=== PATIENT | female | born 1940 | race Caucasian/White ===

== ENCOUNTER 2018-08-22 12:40 | Emergency (ER) | payer MEDICARE, OTHER ==
[~2018-08-22] VITALS: Ht 157.5 cm; Wt 62.1 kg
[2018-08-22] MEDS ORDERED: LIDOCAINE 1% INJ 20 ML 20 ML VIAL ONE (13:05)
[2018-08-22] MEDS ORDERED: TETANUS,DIPTH,PERTUSS P/F (BOOSTRIX) 0.5 ML VIAL IM ONE ×2 (13:07→13:15)
--- NOTE | 2018-08-22 13:09 | ED Head Injury ---
General Chief Complaint: Head/Cervical Problems Stated Complaint: HEAD INJ Nursing Triage Note: Pt arrived with cc of head injury. Onset 30 minutes prior to arrival. Cow kicked gate, which hit pt in head. Pt has hematoma to left forehead with small laceration of 1.5 cm. Bleeding controled. Pt ambulatory to tx room and alert/oriented x 4. Pt did not lose consiousness. Source: patient Exam Limitations: no limitations History of Present Illness Date Seen by Provider: Aug 22, 2018 Time Seen by Provider: 12:50 Initial Comments The patient presents to the ER by private conveyance with chief complaint that just prior to arrival she was standing by a cattle gate and she thinks a calloused of kicked it because it swung out smacking her in the forehead above the left eye knocking her to the ground. She denies striking her head as she fell. She's not having pain anywhere else. She's not taken anything for the goose bump on her forehead but she's got bleeding from the forehead so she decided, and get it stitched up. She says she had her head split by a cow back in 2010 and that's when she had her last tetanus shot. She denies loss of consciousness, confusion or amnesia. She's not on blood thinners. She is only on a blood pressure medicine which she says she does not take very routinely and has not taken today. Allergies and Home Medications Allergies Coded Allergies: No Known Drug Allergies (Unverified , 12/19/11) Home Medications No Active Prescriptions or Reported Meds Patient Home Medication List Home Medication List Reviewed: Yes Review of Systems Review of Systems Constitutional: No chills, No diaphoresis Eyes: Denies Blindness, Denies Blurred Vision, Denies Drainage Ears, Nose, Mouth, Throat: denies ear pain, denies ear discharge Respiratory: No cough, No short of breath Cardiovascular: No chest pain, No palpitations Gastrointestinal: No abdominal pain, No constipation, No diarrhea Genitourinary: No discharge, No dysuria Past Miwxijm-Inxtzj-Uuulzj Hx Patient Social History Alcohol Use: Denies Use Recreational Drug Use: No Smoking Status: Never a Smoker 2nd Hand Smoke Exposure: No Recent Foreign Travel: No Contact w/Someone Who Travel: No Recent Infectious Disease Expo: No Recent Hopitalizations: No Physical Abuse: No Sexual Abuse: No Mistreated: No Fear: No Past Medical History Surgeries: Yes (HERNIA REPAIR X 2) Abdominal, Appendectomy Respiratory: No Cardiac: Yes (DOES NOT TAKE MEDICATION) Hypertension FLOAT NURSE History: Menopausal Gastrointestinal: Yes (S/P HERNIA REPAIR X 2) Abdominal Hernia Musculoskeletal: No Endocrine: No Cancer: No Psychosocial: No Integumentary: No Blood Disorders: No Adverse Reaction/Blood Tranf: No Family Medical History Patient reports no known family medical history. Physical Exam Vital Signs Vital Signs - First Documented 08/22/18 12:42 Temp 98.0 Pulse 69 Resp 18 B/P (MAP) 182/110 (134) Pulse Ox 98 O2 Delivery Room Air Capillary Refill : Less Than 3 Seconds Height, Weight, BMI Height: 5'2.00" Weight: 137lbs. 0.0oz. 62.637042dg; BMI Method:Stated General Appearance: WD/WN, no apparent distress HEENT: PERRL/EOMI, normal ENT inspection, TMs normal, pharynx normal, other ( negative for raccoon eyes, hemotympanum, slater sign. There is a hematoma with a 2 cm linear laceration parallel to the left eyebrow and superior one bout 1-2 cm.) Neck: non-tender, full range of motion, supple, normal inspection Cardiovascular: normal peripheral pulses, regular rate, rhythm Respiratory: chest non-tender, lungs clear, normal breath sounds, no respiratory distress, no accessory muscle use Gastrointestinal: normal bowel sounds, non tender, soft Extremities: normal range of motion, non-tender, normal inspection, normal capillary refill Psychiatric: alert, oriented x 3 Crainal Nerves: normal hearing, normal speech, PERRL (2 mm bilateral) Coordination/Gait: normal gait Skin: normal color, warm/dry Yulia Coma Score Best Eye Response: (4) Open Spontaneously Best Verbal Response: (5) Oriented Best Motor Response: (6) Obeys Commands [place] Total: 15 Procedures/Interventions Wound Location: Face Other Wound Location Superior to left eye Wound Length (cm): 2 Wound's Depth, Shape: linear, sub Q Wound Explored: clean Betadine Prep?: Yes (with chlorhexidine) Anesthesia: 1% Lidocaine Volume Anesthetic (ccs): 3 Wound Debrided: minimal Suture: Prolene Suture Size: 5-0 Number of Sutures: 4 Progress Patient's wound was cleaned thoroughly with chlorhexidine soap water and then rinsed with saline and finally saturated with Betadine and allowed to set for 5 minutes. We then infiltrated the wound through the wound edges after aspirating with a 25-gauge 1-1/2 inch needle 1% lidocaine without epinephrine totaling 3 cc. Within the skin edges were numb we cleaned the wound edges with chlorhexidine soap water and approximated using the usual sterile fashion and draped the patient out and applied 4 simple interrupted sutures which neatly reapproximated the wound edges and cause hemostasis. The patient tolerated the procedure well. Progress/Results/Core Measures Results/Orders My Orders Orders - NUNO FROD Ct Head/Face/Cervical Wo (08/22/18 13:06) Dipht,Pertuss(Acell),Tet Adult (Boostrix (08/22/18 13:15) Lidocaine 1% Inj 20 Ml (Xylocaine 1% Inj (08/22/18 13:15) Lidocaine 1% Inj 20 Ml (Xylocaine 1% Inj (08/22/18 13:05) Dipht,Pertuss(Acell),Tet Adult (Boostrix (08/22/18 13:07) Medications Given in ED Current Medications Medications Dose Ordered Sig/Rafy Route Start Time Stop Time Status Last Admin Dose Admin Diphtheria/ Tetanus/Acell Pertussis 0.5 ml ONCE ONCE IM 08/22/18 13:15 08/22/18 13:16 DC 08/22/18 13:13 0.5 ML Lidocaine HCl 20 ml ONCE ONCE INJ 08/22/18 13:15 08/22/18 13:16 DC 08/22/18 13:16 20 ML Vital Signs/I&O 08/22/18 12:42 Temp 98.0 Pulse 69 Resp 18 B/P (MAP) 182/110 (134) Pulse Ox 98 O2 Delivery Room Air Blood Pressure Mean: 134 Progress Progress Note : Time: 13:[address] of the head maxillofacial and cervical spine. We'll close the wound over her left eye after cleaning it thoroughly. She's declining anything for pain right now. Diagnostic Imaging Diagonstic Imaging: CT (noncontrast) Plain Films/CT/US/NM/MRI: c-spine, head (face) Comments [facility] [place], [place] NAME: HORACIO BUTLER [facility] REC#: [id number] PT STATUS: REG ER : 1940 PHYSICIAN: NUNO FORD MD ADMIT DATE: 08/22/18/ER Draft Date of Exam:08/22/18 CT HEAD/FACE/CERVICAL WO PROCEDURE: CT head, face, and cervical spine without contrast. TECHNIQUE: Multiple contiguous axial images were obtained through the head, neck, and facial bones without the use of intravenous contrast. Sagittal and coronal reformations through the cervical spine and facial bones were also performed. INDICATION: Injury to the head, neck, and face, kicked by a cow. FINDINGS: CT head: The ventricles and sulci are within normal limits. No sulcal effacement, midline shift, or hemorrhage is detected. Cisterns are patent. Visualized paranasal sinuses appear clear. IMPRESSION: No acute intracranial process is detected. CT cervical spine: Curvature and alignment is normal. There is multilevel degenerative disc disease with variable disc space narrowing and marginal spurring. Prevertebral tissues are normal. No fracture or subluxation is identified. The odontoid appears intact. There appears to be low-density mass in the right thyroid. IMPRESSION: 1. Cervical spondylosis. No acute bony abnormality is detected. 2. Right thyroid mass. Dedicated thyroid ultrasound could be performed on nonemergent basis for further evaluation. CT face: The mandible appears intact. The zygomatic arches are intact. There is small amount of fluid in the right maxillary sinus as well as some mucosal thickening. No definite fracture is seen. Orbital fong are intact. The globes are unremarkable. No nasal bone fracture is seen. IMPRESSION: No facial fracture is detected. Dictated on workstation # [id number] Dict: 08/22/18 1431 Trans: 08/22/18 1449 [id number] Interpreted by: WALKER MADDOX MD Electronically signed by: Reviewed: Reviewed by Me Departure Impression Primary Impression: Head injury, acute, without loss of consciousness Qualified Codes: S09.90XA - Unspecified injury of head, initial encounter Additional Impressions: Laceration Hematoma Thyroid mass of unclear etiology Disposition: 01 HOME, SELF-CARE Condition: Improved (ERASED) Departure-Patient Inst. Decision time for Depature: 15:09 Referrals: ANDREAS MATA MD (PCP/Family) Primary Care Physician Patient Instructions: Concussion in Adults, Laceration Repair With Stitches (DC ) Add. Discharge Instructions: Take the rest of the day off and get some rest. Use Tylenol and/or ibuprofen if you're having pain. An ice pack to the knot above your left eye can also be helpful for the swelling and pain. He may clean the wound with regular soap and water and you may apply a gauze dressing as necessary. If you have any symptoms of concussion such as nausea, headache, dizziness or imbalance then you should take Tylenol or Motrin as appropriate drink some fluids and lay down to sleep. Do not attempt the activity were doing for at least 24 hours after symptoms of a concussion arise. Follow-up with primary care as necessary. The sutures should come out in 10-14 days either here the ER or with your primary care doctor. Call your primary care doctor and set up a ultrasound of your thyroid outpatient and follow up with them for results To workup the incidental nodule noted on your thyroid. All discharge instructions reviewed with patient and/or family. Voiced understanding. Scripts No Active Prescriptions or Reported Meds NUNO FORD Aug 22, 2018 13:09
[2018-08-22] MEDS ORDERED: LIDOCAINE 1% INJ 20 ML 20 ML VIAL INJ ONE (13:15)
--- NOTE | 2018-08-22 14:49 | Diagnostic Imaging Report ---
PROCEDURE: CT head, face, and cervical spine without contrast. TECHNIQUE: Multiple contiguous axial images were obtained through the head, neck, and facial bones without the use of intravenous contrast. Sagittal and coronal reformations through the cervical spine and facial bones were also performed. INDICATION: Injury to the head, neck, and face, kicked by a cow. FINDINGS: CT head: The ventricles and sulci are within normal limits. No sulcal effacement, midline shift, or hemorrhage is detected. Cisterns are patent. Visualized paranasal sinuses appear clear. IMPRESSION: No acute intracranial process is detected. CT cervical spine: Curvature and alignment is normal. There is multilevel degenerative disc disease with variable disc space narrowing and marginal spurring. Prevertebral tissues are normal. No fracture or subluxation is identified. The odontoid appears intact. There appears to be low-density mass in the right thyroid. IMPRESSION: 1. Cervical spondylosis. No acute bony abnormality is detected. 2. Right thyroid mass. Dedicated thyroid ultrasound could be performed on nonemergent basis for further evaluation. CT face: The mandible appears intact. The zygomatic arches are intact. There is small amount of fluid in the right maxillary sinus as well as some mucosal thickening. No definite fracture is seen. Orbital fong are intact. The globes are unremarkable. No nasal bone fracture is seen. IMPRESSION: No facial fracture is detected. Dictated by: Dictated on workstation # [id number]
[2018-08-22 15:16] VITALS: BP 177/110
== END 2018-08-22 15:16 | disposition home or self-care (01) ==
LOC: EDUNIT# 12:40 → ER 12:41
DX: S09.90XA Unspecified injury of head, initial encounter (principal); S01.81XA Laceration without foreign body of other part of head, initial encounter; E07.9 Disorder of thyroid, unspecified; I10 Essential (primary) hypertension; R40.2142 Coma scale, eyes open, spontaneous, at arrival to emergency department; R40.2252 Coma scale, best verbal response, oriented, at arrival to emergency department; R40.2362 Coma scale, best motor response, obeys commands, at arrival to emergency department; Z87.19 Personal history of other diseases of the digestive system; Z23 Encounter for immunization; Z98.890 Other specified postprocedural states; Z90.49 Acquired absence of other specified parts of digestive tract; W22.09XA Striking against other stationary object, initial encounter
CPT/HCPCS: 70450; 70486; 72125; 90715

== ENCOUNTER 2020-01-22 21:19 | Emergency (ER) | payer MEDICARE ==
[~2020-01-22] VITALS: Ht 163 cm; Wt 67.0 kg
[2020-01-22 21:24] VITALS: BP 151/97
[2020-01-22] MEDS ORDERED: [UNRECOGNIZED DRUG - REMARK] (21:36)
--- NOTE | 2020-01-22 21:48 | ED Lower Extremity ---
General Chief Complaint: Lower Extremity Stated Complaint: R LEG PAIN History of Present Illness Date Seen by Provider: January 22, 2020 Time Seen by Provider: 21:30 Initial Comments 79-year-old female reports she was sitting on the back of a truck, she fell off, rolled her ankle and sustained a laceration to the anterior the mid tibia. Last tetanus vaccine Aug 2018. Her PCP is in [place], [place], started her on Cefadroxil 01/17/20. She has noted increased pain and swelling at the laceration site and difficulty walking. No head, neck or back injury at the time of the fall. No LOC. Onset: last week Pain/Injury Location: right leg, right ankle Method of Injury: fell Modifying Factors: Improves With Rest Allergies and Home Medications Allergies Coded Allergies: No Known Drug Allergies (Unverified , 12/19/11) Patient Home Medication List Home Medication List Reviewed: Yes Review of Systems Constitutional: no symptoms reported, see HPI Musculoskeletal: see HPI, joint pain (right ankle), muscle pain (Right lower leg), muscle stiffness Skin: see HPI, other (Laceration right mid ant tib/fib) All Other Systems Reviewed Negative Unless Noted: Yes Past Ytktuac-Lylqog-Diaded Hx Past Med/Social Hx: Reviewed Nursing Past Med/Soc Hx Patient Social History 2nd Hand Smoke Exposure: No Recent Foreign Travel: No Contact w/Someone Who Travel: No Recent Hopitalizations: No Past Medical History Surgeries: Yes (HERNIA REPAIR X 2) Abdominal, Appendectomy Respiratory: No Cardiac: Yes (DOES NOT TAKE MEDICATION) 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 Physical Exam Vital Signs Vital Signs - First Documented 01/22/20 21:24 Temp 36.8 Pulse 71 Resp 16 B/P (MAP) 151/97 (115) Pulse Ox 97 O2 Delivery Room Air Capillary Refill : Height, Weight, BMI Height: 5'2.00" Weight: 137lbs. 0.0oz. 62.850686ma; BMI Method:Stated General Appearance: WD/WN, no apparent distress Neck: non-tender, full range of motion, supple, normal inspection Cardiovascular: normal peripheral pulses, regular rate, rhythm Respiratory: chest non-tender, lungs clear, normal breath sounds Gastrointestinal: normal bowel sounds, non tender, soft Knees: right knee non-tender, right knee normal inspection, right knee normal range of motion, right knee no evidence of injury, right knee other (varicose ) Ankles: right ankle bone tenderness, right ankle ecchymosis, right ankle joint effusion, right ankle limited range of motion, right ankle soft tissue tenderness Feet: right foot normal range of motion, right foot no evidence of injury, right foot swelling Neurologic/Psychiatric: no motor/sensory deficits, alert, normal mood/affect, oriented x 3 Skin: normal color, warm/dry, other (Laceration, with swelling, 5 cm in length. No active drainage, tender. No fluctuance or induration. ) Procedures/Interventions Suture Size: 5-0 Progress/Results/Core Measures Results/Orders My Orders Orders - JASON BOND Tibia/Fibula, Right, 2 Views (01/22/20 21:42) Ankle, Right, 3 Views (01/22/20 21:42) Rx-Mupirocin 2% Oint (Rx-Bactroban) (01/22/20 22:07) Vital Signs/I&O 01/22/20 21:24 Temp 36.8 Pulse 71 Resp 16 B/P (MAP) 151/97 (115) Pulse Ox 97 O2 Delivery Room Air Diagnostic Imaging Diagonstic Imaging: Xray Plain Films/CT/US/NM/MRI: ankle, other (Tib/Fib) Comments No fractures, dislocations or acute findings noted. Departure Impression Primary Impression: Laceration of right lower leg Qualified Codes: S81.811A - Laceration without foreign body, right lower leg, initial encounter Additional Impression: Right ankle sprain Qualified Codes: S93.411A - Sprain of calcaneofibular ligament of right ankle, initial encounter Disposition: 01 HOME, SELF-CARE Condition: Improved Departure-Patient Inst. Decision time for Depature: 10:10 Referrals: NO,LOCAL PHYSICIAN (PCP/Family) Primary Care Physician Patient Instructions: Ankle Sprain (DC), Wound Care (DC) Add. Discharge Instructions: Clean wound with peroxide and apply antibiotic ointment three times daily. Use jordan wrap for swelling. Follow up with your Primary Care Provider. You will need contact medical records, to obtain reports, call [phone]. Continue taking your oral antibiotic. Return to Emergency Dept for new, urgent health care needs. All discharge instructions reviewed with patient and/or family. Voiced understanding. JASON BOND January 22, 2020 21:48
[2020-01-22] MEDS ORDERED: RX-MUPIROCIN (BACTROBAN) 2% OINT 22 GM TUBE TOP STA (22:07)
--- NOTE | 2020-01-23 05:44 | Diagnostic Imaging Report ---
CLINICAL INDICATION: Patient with right lower anterior leg pain status post fall a week ago. Patient has healing 5 cm laceration to mid tibia and fibula. EXAM: X-ray of the right tibia and fibula, 4 views. COMPARISON: X-ray of the right ankle dated 01/22/2020. FINDINGS: There is no acute fracture or dislocation. There are hypertrophic calcaneal spurs involving the plantar attachment. There is spurring of the dorsal midfoot. Ankle mortise and syndesmotic joints unremarkable as visualized. Soft tissue swelling seen laterally adjacent to the lateral malleolus. There is mild tricompartmental spurs noted. There is mild medial compartment narrowing on these nonweightbearing views. There is a chronic appearing calcification overlying the medial compartment seen on the AP view and is not localized on the lateral view. There is no knee effusion. IMPRESSION: 1: There is no acute fracture or dislocation. 2: There is soft tissue swelling laterally adjacent to the lateral malleolar region. 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 Dictated by: Dictated on workstation # [id number]
--- NOTE | 2020-01-23 05:59 | Diagnostic Imaging Report ---
CLINICAL INDICATION: Patient right lower anterior leg pain status post fall week ago. Patient has healing 5 cm laceration in the mid tibia and fibula. EXAM: X-ray of the right ankle, 3 views. COMPARISON: X-ray of the right tibia-fibula dated 01/22/2020. FINDINGS: There is no acute fracture or dislocation. There is soft tissue swelling seen laterally adjacent to the lateral malleolus. Ankle mortise and syndesmotic joints unremarkable. There are hypertrophic spurs involving the dorsal midfoot. There is hypertrophic calcaneal spurs at the plantar attachment and small spurs involving the Achilles attachment. IMPRESSION: 1: There is no acute fracture or dislocation. There is soft tissue swelling seen laterally adjacent to the ankle. 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 Dictated by: Dictated on workstation # [id number]
== END 2020-01-22 22:28 | disposition home or self-care (01) ==
LOC: EDUNIT# 21:19 → ER 21:21
DX: S81.811A Laceration without foreign body, right lower leg, initial encounter (principal); S93.411A Sprain of calcaneofibular ligament of right ankle, initial encounter; I10 Essential (primary) hypertension; Z91.14 Patient's other noncompliance with medication regimen; W17.89XA Other fall from one level to another, initial encounter; X50.1XXA Overexertion from prolonged static or awkward postures, initial encounter
CPT/HCPCS: 73590; 73610

== ENCOUNTER 2020-07-03 15:52 | Emergency (ER) | payer MEDICARE ==
[~2020-07-03] VITALS: Ht 157 cm; Wt 62.0 kg
[~2020-07-03 15:52] MED LIST: [UNRECOGNIZED DRUG - REMARK]
[2020-07-03] MEDS ORDERED: TETRACAINE 0.5% OPHTH SOLN 4 ML BTL (SINGLE DOSE ONLY) OU ONE (16:45)
[2020-07-03] MEDS ORDERED: FLUORESCEIN (FLUOR-I-STRIPS) 1 MG STRP OU ONE (16:45)
[2020-07-03] MEDS ORDERED: BSS 15 ML IR ONE (16:45)
--- NOTE | 2020-07-03 16:51 | ED EENT ---
History of Present Illness General Chief Complaint: Eye Problems Stated Complaint: R EYE PAIN / INJ Nursing Triage Note: c/o R eye pain. Patient reports 43 [employer]UDIO/VIDEO [employer]CH[employer] she was weedeating and something hit her in the eye and it began to bleed. denies vision abnormalities Source: patient Exam Limitations: no limitations History of Present Illness Date Seen by Provider: Jul 03, 2020 Time Seen by Provider: 16:48 Initial Comments To ER with reports of a right eye injury. She was out weed eating without eye protection when something was thrown up and struck the right eye. She noticed some blood to the Lower part of the right eye. She states that her vision is unaffected and she has no blurred vision, the pain is minimal but does feel as if something is in her eye. Timing/Duration: abrupt Severity: moderate Associated Symptoms: denies symptoms Allergies and Home Medications Allergies Coded Allergies: No Known Drug Allergies (Unverified , 12/19/11) Patient Home Medication List Home Medication List Reviewed: Yes Review of Systems Review of Systems Constitutional: see HPI Eyes: See HPI, Foreign Body Sensation Ears: No Symptoms Reported Nose: no symptoms reported Mouth: no symptoms reported Throat: no symptoms reported Respiratory: no symptoms reported Cardiovascular: no symptoms reported Musculoskeletal: no symptoms reported Past Qoyqxox-Ewbaxd-Coipcv Hx Patient Social History Alcohol Use: Denies Use Recreational Drug Use: No 2nd Hand Smoke Exposure: No Recent Foreign Travel: No Contact w/Someone Who Travel: No Recent Infectious Disease Expo: No Recent Hopitalizations: No Immunizations Up To Date Tetanus Booster (TDap): Unknown Seasonal Allergies Seasonal Allergies: No Past Medical History Surgeries: Yes (HERNIA REPAIR X 2) Abdominal, Appendectomy Respiratory: No Cardiac: Yes Hypertension 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 Physical Exam Vital Signs Vital Signs - First Documented 07/03/20 16:28 Temp 36.8 Pulse 61 Resp 18 B/P (MAP) 127/51 (76) Pulse Ox 96 Height, Weight, BMI Height: 5'2.00" Weight: 137lbs. 0.0oz. 62.877306ql; 25.00 BMI Method:Stated General Appearance: WD/WN, no apparent distress Eyes: bilateral eye PERRL, bilateral eye EOMI, bilateral eye other (pupils are equal, there is no photophobia to suggest traumatic iritis. There is a rather large subconjunctival hematoma confined to the right lower quadrant of the bulbar conjunctiva on the right that does not cross the limbus. There is no area of dye uptake on staining area and no suggestion of corneal abrasion. There is no blood in the anterior chamber. No foreign bodies are seen but we will go ahead and get a CT of the orbit.) Neck: non-tender, full range of motion Respiratory: no respiratory distress, no accessory muscle use Neurologic/Psychiatric: alert, normal mood/affect Skin: normal color, warm/dry Procedures/Interventions Suture Size: 5-0 Progress/Results/Core Measures Results/Orders My Orders Orders - ROSE ELI APRN Tetracaine 0.5% Ophth Alanna Sdv (Tetracai (07/03/20 16:45) Fluorescein Strips (Vrvok-S-Ehnlug) (07/03/20 16:45) Balanced Salt Irrigation Soln (Bss Irrig (07/03/20 16:45) Ct Orbit Wo (07/03/20 16:47) Medications Given in ED Current Medications Medications Dose Ordered Sig/Rafy Route Start Time Stop Time Status Last Admin Dose Admin Balanced Salt Solution 15 ml ONCE ONCE IR 07/03/20 16:45 07/03/20 16:46 DC 07/03/20 16:46 15 ML Fluorescein Sodium 1 mg ONCE ONCE OU 07/03/20 16:45 07/03/20 16:46 DC 07/03/20 16:46 1 MG Tetracaine HCl 4 ml ONCE ONCE OU 07/03/20 16:45 07/03/20 16:46 DC 07/03/20 16:46 4 ML Vital Signs/I&O 07/03/20 16:28 Temp 36.8 Pulse 61 Resp 18 B/P (MAP) 127/51 (76) Pulse Ox 96 Blood Pressure Mean: 76 Departure Communication (Admissions) [id number] spoke with Dr. Foster from ophthalmology at [facility] in [place], he states he is not fabrication mig welder for our hospital and is not interested in this case. She states that Dr. Huang who is out of [place] and does cataract surgeries here should be fabrication mig welder for us. However we do not have ophthalmology coverage nor have we ever had that coverage so I'll look elsewhere for transfer. 184-spoke with Dr. Levine from trauma surgery at , he has accepted the patient, will transfer there. Right eye vision is 20/40 with her glasses on, left eye vision is 20/30 with gl asses on. She states her vision doesn't seem any different today than it does in the other day, neither better nor worse. Impression Primary Impression: Subconjunctival hemorrhage Additional Impression: Foreign body of globe Disposition: HOME, SELF-CARE Condition: Stable Departure-Patient Inst. Referrals: ANDREAS MATA MD (PCP/Family) Primary Care Physician ROSE ELI APRN Jul 03, 2020 16:50
--- NOTE | 2020-07-03 17:18 | Diagnostic Imaging Report ---
PROCEDURE: CT orbit without contrast. TECHNIQUE: Multiple contiguous axial images were obtained through the facial bones without the use of intravenous contrast. Auto Exposure Controls were utilized during the CT exam to meet ALARA standards for radiation dose reduction. INDICATION: Blunt force trauma, right eye. FINDINGS: There is a 1.0 x 2.5 x 3.0 mm radiopaque foreign object embedded in the lateral cornea of the right globe. There is some overlying soft tissue edema. This is lateral to the lens of the eye. No intraconal abnormality is seen. IMPRESSION: There is a foreign body that appears to be embedded in the right mid lateral cornea just below midline of the right globe. Dictated by: Dictated on workstation # [id number]
--- NOTE | 2020-07-03 19:05 | NUR ---
pt updated on poc, informed we're waiting onku to call back. Addendum: 07/03/20 at 1913 by SREGIO no needs at this time.
[2020-07-03 19:19] VITALS: BP 170/99
== END 2020-07-03 19:19 | disposition home or self-care (01) ==
LOC: EDUNIT# 15:52 → ER 15:53
DX: H11.31 Conjunctival hemorrhage, right eye (principal); T15.81XA Foreign body in other and multiple parts of external eye, right eye, initial encounter; W22.8XXA Striking against or struck by other objects, initial encounter
CPT/HCPCS: 70480

== ENCOUNTER 2021-03-13 19:51 | Observation (INO) | payer MEDICARE ==
[~2021-03-13] VITALS: Ht 154.9 cm; Wt 65.8 kg
--- NOTE | 2021-03-13 20:05 | ED Chest Pain ---
General Chief Complaint: Chest Pain Stated Complaint: CP/NAUSEA Source: patient Exam Limitations: no limitations History of Present Illness Date Seen by Provider: Mar 13, 2021 Time Seen by Provider: 19:56 Initial Comments Patient to the ER by private conveyance from home with chief complaint of chest pain substernal and left-sided chest nonradiating sharp, constant that started up this morning right after she got up from bed. No nausea sweats fever chills cough shortness of air or sick contacts. It went away after a couple hours of rest and then about an hour prior to arrival it came back about a 6 or 7 out of 10. She has had EKGs in the past and had a work-up for annual physical 2 months ago at her primary care doctor in [place] and at that time everything was okay. She does take atenolol but she missed today for her blood pressure and denies a history of hyperlipidemia, previous coronary disease, diabetes or smoking. She does not use illicit drugs or alcohol. He is not having dysuria diarrhea or constipation. She does have significant hypertension. She also noticed in the past couple days she has had to take her bra off throughout the day because she feels like it is constricting her chest. She is known to Dr. 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 Negative cardiac stress test 2014. At that time she was given a dose of nitroglycerin which caused a significant drop in her blood pressure down to the 60s systolic and the patient became diaphoretic and had a near syncopal event. It did however help her chest pain. Allergies and Home Medications Allergies Coded Allergies: No Known Drug Allergies (Unverified , 12/19/11) Patient Home Medication List Home Medication List Reviewed: Yes Review of Systems Review of Systems Constitutional: No chills, No diaphoresis EENTM: No Blurred Vision, No Double Vision Respiratory: Denies Cough, Denies Shortness of Air Cardiovascular: See HPI, Chest Pain; Denies Edema, Denies Lightheadedness, Denies Palpitations, Denies Syncope Gastrointestinal: See HPI; Denies Abdominal Pain, Denies Constipated, Denies Diarrhea, Denies Nausea Genitourinary: Denies Burning, Denies Discharge Musculoskeletal: No back pain, No joint pain All Other Systems Reviewed Negative Unless Noted: Yes Past Olovach-Xkfzyi-Tqohuw Hx Patient Social History Alcohol Use: Denies Use Drug of Choice: Denies Smoking Status: Never a Smoker 2nd Hand Smoke Exposure: No Recent Hopitalizations: No Immunizations Up To Date Tetanus Booster (TDap): Unknown Seasonal Allergies Seasonal Allergies: No Past Medical History Surgeries: Yes (HERNIA REPAIR X 2) Abdominal, Appendectomy Respiratory: No Cardiac: Yes Hypertension 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 Physical Exam Vital Signs Vital Signs - First Documented 03/13/21 19:56 Temp 37.1 Pulse 67 Resp 20 B/P (MAP) 167/91 (116) Pulse Ox 95 O2 Delivery Room Air Capillary Refill : Height, Weight, BMI Height: 5'2.00" Weight: 137lbs. 0.0oz. 62.488368hi; 25.00 BMI Method:Stated General Appearance: WD/WN, Anxious HEENT: PERRL/EOMI, Pharynx Normal, Moist Mucous Membranes Neck: Full Range of Motion, Normal Inspection Respiratory: Chest Non Tender, Lungs Clear, Normal Breath Sounds, No Accessory Muscle Use, No Respiratory Distress Cardiovascular: Regular Rate, Rhythm, No Edema, Normal Peripheral Pulses Gastrointestinal: Normal Bowel Sounds, Non Tender, Soft Extremity: Normal Capillary Refill, Normal Inspection, No Pedal Edema Neurologic/Psychiatric: Alert, Oriented x3, No Motor/Sensory Deficits Skin: Normal Color, Warm/Dry Procedures/Interventions Suture Size: 5-0 Progress/Results/Core Measures Results/Orders Lab Results Laboratory Tests Test 03/13/21 20:08 Range/Units White Blood Count 4.7 4.3-11.0 10^3/uL Red Blood Count 4.47 3.80-5.11 10^6/uL Hemoglobin 13.3 11.5-16.0 g/dL Hematocrit 41 35-52 % Mean Corpuscular Volume 92 80-99 fL Mean Corpuscular Hemoglobin 30 25-34 pg Mean Corpuscular Hemoglobin Concent 33 32-36 g/dL Red Cell Distribution Width 14.1 10.0-14.5 % Platelet Count 217 130-400 10^3/uL Mean Platelet Volume 9.4 9.0-12.2 fL Immature Granulocyte % (Auto) 0 % Neutrophils (%) (Auto) 61 42-75 % Lymphocytes (%) (Auto) 27 12-44 % Monocytes (%) (Auto) 6 0-12 % Eosinophils (%) (Auto) 4 0-10 % Basophils (%) (Auto) 1 0-10 % Neutrophils # (Auto) 2.8 1.8-7.8 10^3/uL Lymphocytes # (Auto) 1.3 1.0-4.0 10^3/uL Monocytes # (Auto) 0.3 0.0-1.0 10^3/uL Eosinophils # (Auto) 0.2 0.0-0.3 10^3/uL Basophils # (Auto) 0.1 0.0-0.1 10^3/uL Immature Granulocyte # (Auto) 0.0 0.0-0.1 10^3/uL Prothrombin Time 13.5 12.2-14.7 SEC INR Comment 1.0 0.8-1.4 Activated Partial Thromboplast Time 29 24-35 SEC Sodium Level 143 135-145 MMOL/L Potassium Level 3.4 L 3.6-5.0 MMOL/L Chloride Level 106 98-107 MMOL/L Carbon Dioxide Level 28 21-32 MMOL/L Anion Gap 9 5-14 MMOL/L Blood Urea Nitrogen 11 7-18 MG/DL Creatinine 0.82 0.60-1.30 MG/DL Estimat Glomerular Filtration Rate > 60 BUN/Creatinine Ratio 13 Glucose Level 128 H 70-105 MG/DL Calcium Level 10.0 8.5-10.1 MG/DL Corrected Calcium 10.0 8.5-10.1 MG/DL Magnesium Level 2.0 1.6-2.4 MG/DL Total Bilirubin 0.5 0.1-1.0 MG/DL Aspartate Amino Transf (AST/SGOT) 99 H 5-34 U/L Alanine Aminotransferase (ALT/SGPT) 46 0-55 U/L Alkaline Phosphatase 89 40-136 U/L Myoglobin 49.8 10.0-92.0 NG/ML Troponin I < 0.028 <0.028 NG/ML B-Type Natriuretic Peptide 76.6 <100.0 PG/ML Total Protein 7.1 6.4-8.2 GM/DL Albumin 4.0 3.2-4.5 GM/DL Lipase 15 8-78 U/L My Orders Orders - NUNO FORD J Ekg Tracing (03/13/21 19:54) Continuous Ekg Monitoring (03/13/21 19:54) Cbc With Automated Diff (03/13/21 20:10) Magnesium (03/13/21 20:10) Chest 1 View, Ap/Pa Only (03/13/21 20:10) Comprehensive Metabolic Panel (03/13/21 20:10) Myoglobin Serum (03/13/21 20:10) Protime With Inr (03/13/21 20:10) Partial Thromboplastin Time (03/13/21 20:10) O2 (03/13/21 20:10) Lipid Panel (03/14/21 06:00) Ed Iv/Invasive Line Start (03/13/21 20:10) Lipase (03/13/21 20:10) BNP (03/13/21 20:10) Troponin I (03/13/21 20:10) Aspirin Chewable Tablet (Baby Aspirin Ch (03/13/21 20:15) Morphine Injection (Morphine Injection (03/13/21 20:10) Enoxaparin Injection (Lovenox Injection) (03/13/21 21:30) Medications Given in ED Current Medications Medications Dose Ordered Sig/Rafy Route Start Time Stop Time Status Last Admin Dose Admin Aspirin 324 mg ONCE ONCE PO 03/13/21 20:15 03/13/21 20:16 DC 03/13/21 20:15 324 MG Vital Signs/I&O 03/13/21 19:56 Temp 37.1 Pulse 67 Resp 20 B/P (MAP) 167/91 (116) Pulse Ox 95 O2 Delivery Room Air Progress Progress Note #1: Time: 20:14 Progress Note Ms. Linn is a fairly stoic patient with no previous history of coronary disease known however she has the risk factors of age, hypertension. With a negative initial troponin I hour after the start of this episode of chest pain she would have a heart score of 4 points. High risk; 12-65% 30-day MACE. Admit to hospital or observation. Further testing indicated. We will give her aspirin and 2 mg of morphine since she has a history of problems taking the nitroglycerin. Progress Note #2: Time: 21:03 Progress Note Pain was significantly improved however it is still a little bit there. She says she does not want anything further for the pain at this time. Initial ECG Impression Date: Mar 13, 2021 Initial ECG Impression Time: 19:58 Initial ECG Rate: 65 Initial ECG Rhythm: Normal Sinus Initial ECG Intervals: Normal Initial ECG Impression: Normal Initial ECG Comparisson: Unchanged Comment Normal sinus rhythm without clinically relevant ST elevation or depression Diagnostic Imaging Diagonstic Imaging: Xray Plain Films/CT/US/NM/MRI: chest Comments NAME: HORACIO LINN [facility] REC#: [id number] PT STATUS: REG ER : 1940 PHYSICIAN: NUNO FORD MD ADMIT DATE: 03/13/21/ER Draft Date of Exam:03/13/21 CHEST 1 VIEW, AP/PA ONLY INDICATION: Chest pain and nausea. EXAMINATION: Chest, 03/13/2021. COMPARISON: 06/23/2015. FINDINGS: Heart unremarkable. Pulmonary vasculature within normal limits. There is atelectasis at the right lung base. No infiltrate or effusion. No pneumothorax. IMPRESSION: Right base atelectasis, otherwise negative chest. Dictated on workstation # [id number] Dict: 03/13/212029 Trans: 03/13/212033 [facility] [id number] Interpreted by: GLADYS BARNES MD Electronically signed by: Reviewed: Reviewed by Me Departure Communication (Admissions) Time/Spoke to Admitting Phy: 21:30 Discussed the case with Dr. Escamilla and he agrees to observe the patient with consultation to cardiology. Time/Spoke to Consulting Phy: 21:27 Discussed the case with Dr. Singleton, cardiology and he recommends Plavix 150 mg now and 75 mg in the morning. Aspirin 81 mg daily after 324 mg bolus. Metoprolol succinate 25 mg p.o. now and daily. Full dose Lovenox. N.p.o. after a clear liquid breakfast in the morning Impression Primary Impression: Acute coronary syndrome without high troponin Disposition: ADMITTED INPATIENT Condition: Stable Admissions Decision to Admit Reason: Admit from ER (General) Decision to Admit/Date: Mar 13, 2021 Time/Decision to Admit Time: 20:29 Departure-Patient Inst. Referrals: ANDREAS MATA MD (PCP/Family) Primary Care Physician NUNO FORD Mar 13, 2021 20:05
[2021-03-13] MEDS ORDERED: morphine INJ 10 MG/ML 1ML (SYR OR VIAL) IV STA (20:10)
[2021-03-13 20:15] LABS: BASOPHILS # (AUTO) 0.1 10^3/uL (0.0-0.1); BASOPHILS % (AUTO) 1 % (0-10); EOSINOPHILS # (AUTO) 0.2 10^3/uL (0.0-0.3); EOSINOPHILS % (AUTO) 4 % (0-10); HEMATOCRIT 41 % (35-52); HEMOGLOBIN 13.3 g/dL (11.5-16.0); LYMPHOCYTES # (AUTO) 1.3 10^3/uL (1.0-4.0); LYMPHOCYTES % (AUTO) 27 % (12-44); MEAN CORPUSCULAR HEMOGLOBIN 30 pg (25-34); MEAN CORPUSCULAR HGB CONC 33 g/dL (32-36); MEAN CORPUSCULAR VOLUME 92 fL (80-99); MEAN PLATELET VOLUME 9.4 fL (9.0-12.2); MONOCYTES # (AUTO) 0.3 10^3/uL (0.0-1.0); MONOCYTES % (AUTO) 6 % (0-12); NEUTROPHILS # (AUTO) 2.8 10^3/uL (1.8-7.8); NEUTROPHILS % (AUTO) 61 % (42-75); PLATELET COUNT 217 10^3/uL (130-400); WHITE BLOOD COUNT 4.7 10^3/uL (4.3-11.0)
[2021-03-13] MEDS ORDERED: ASPIRIN 81 MG CHEW (CHILDREN'S ASA) PO ONE (20:15)
[2021-03-13 20:26] LABS: PROTHROMBIN TIME PATIENT 13.5 SEC (12.2-14.7)
[2021-03-13 20:34] LABS: ALANINE AMINOTRANSFERASE 46 U/L (0-55); ALKALINE PHOSPHATASE 89 U/L (40-136); BILIRUBIN,TOTAL 0.5 MG/DL (0.1-1.0); BUN/CREATININE RATIO 13; CARBON DIOXIDE 28 MMOL/L (21-32); CHLORIDE 106 MMOL/L (98-107); CREATININE SERUM 0.82 MG/DL (0.60-1.30); GFR ESTIMATED > 60; GLUCOSE 128 MG/DL (70-105); LIPASE 15 U/L (8-78); POTASSIUM 3.4 MMOL/L (3.6-5.0); SODIUM 143 MMOL/L (135-145); TOTAL PROTEIN 7.1 GM/DL (6.4-8.2)
--- NOTE | 2021-03-13 20:34 | Diagnostic Imaging Report ---
INDICATION: Chest pain and nausea. EXAMINATION: Chest, 03/13/2021. COMPARISON: 06/23/2015. FINDINGS: Heart unremarkable. Pulmonary vasculature within normal limits. There is atelectasis at the right lung base. No infiltrate or effusion. No pneumothorax. IMPRESSION: Right base atelectasis, otherwise negative chest. Dictated by: Dictated on workstation # [id number]
[2021-03-13] MEDS ORDERED: CLOPIDOGREL 75 MG (PLAVIX) TABLET PO ONE (21:30)
[2021-03-13] MEDS ORDERED: ENOXAPARIN 60 MG/0.6 ML (LOVENOX) SYR SC ONE (21:30)
[2021-03-13 22:39] VITALS: BP 146/82
[2021-03-13 22:45] VITALS: BP 139/82
[2021-03-13 23:00] VITALS: BP 137/78
[2021-03-13] MEDS ORDERED: ACETAMINOPHEN 325 MG TABLET PO PRN (23:00)
[2021-03-13] MEDS ORDERED: CATHETER FLUSH 10 ML SYR IV PRN (23:00)
[2021-03-13 23:15] VITALS: BP 138/89
[2021-03-13] MEDS: ANTACID SUSP 30 ML UDC (MYLANTA) PO PRN (23:15)
[2021-03-13] MEDS ORDERED: ONDANSETRON 4 MG/2 ML (SDV) Z0FRAN IVP PRN (23:15)
[2021-03-13] MEDS ORDERED: morphine INJ 4 MG/ML 1 ML (VIAL/SYRINGE) IV PRN (23:15)
[2021-03-13 23:30] VITALS: BP 132/83
[2021-03-13 23:45] VITALS: BP 105/84
[2021-03-14] VITALS (13 sets, daily range): BP systolic 111–161; BP diastolic 61–91
[2021-03-14 02:01] LABS: BASOPHILS % (AUTO) 1 % (0-10); EOSINOPHILS % (AUTO) 1 % (0-10); HEMATOCRIT 37 % (35-52); HEMOGLOBIN 11.9 g/dL (11.5-16.0); LYMPHOCYTES # (AUTO) 1.2 10^3/uL (1.0-4.0); LYMPHOCYTES % (AUTO) 24 % (12-44); MEAN CORPUSCULAR HEMOGLOBIN 30 pg (25-34); MEAN CORPUSCULAR HGB CONC 32 g/dL (32-36); MEAN CORPUSCULAR VOLUME 91 fL (80-99); MONOCYTES # (AUTO) 0.4 10^3/uL (0.0-1.0); MONOCYTES % (AUTO) 7 % (0-12); NEUTROPHILS # (AUTO) 3.4 10^3/uL (1.8-7.8); NEUTROPHILS % (AUTO) 67 % (42-75); PLATELET COUNT 206 10^3/uL (130-400); WHITE BLOOD COUNT 5.1 10^3/uL (4.3-11.0)
[2021-03-14 02:05] LABS: CHLORIDE 107 MMOL/L (98-107); POTASSIUM 3.4 MMOL/L (3.6-5.0); SODIUM 144 MMOL/L (135-145)
[2021-03-14 02:06] LABS: CALCIUM 8.9 MG/DL (8.5-10.1)
[2021-03-14 02:07] LABS: GLUCOSE 111 MG/DL (70-105); TRIGLYCERIDES 49 MG/DL (<150); VLDL CHOLESTEROL 10 MG/DL (5-40)
[2021-03-14 02:08] LABS: CARBON DIOXIDE 25 MMOL/L (21-32)
[2021-03-14 02:10] LABS: CREATININE SERUM 0.72 MG/DL (0.60-1.30); GFR ESTIMATED > 60
[2021-03-14 02:12] LABS: BUN/CREATININE RATIO 14; CHOLESTEROL 155 MG/DL (< 200)
[2021-03-14 02:13] LABS: HDL CHOLESTEROL 61 MG/DL (40-60)
[2021-03-14] MEDS: CATHETER FLUSH 10 ML SYR IV SCH ×3 (05:03→13:56)
[2021-03-14] MEDS: ASPIRIN E.C. 81 MG (ECOTRIN) TAB PO SCH (08:19)
[2021-03-14] MEDS: ENOXAPARIN 60 MG/0.6 ML (LOVENOX) SYR SC SCH ×2 (08:19→19:45)
[2021-03-14] MEDS: CLOPIDOGREL 75 MG (PLAVIX) TABLET PO SCH (08:19)
[2021-03-14] MEDS ORDERED: amLODIPine 10 MG (NORVASC) TAB ONE (10:26)
[2021-03-14] MEDS ORDERED: KCL 20 MEQ TAB (K-DUR) PO ONE ×2 (10:26→11:00)
[2021-03-14] MEDS ORDERED: amLODIPine 10 MG (NORVASC) TAB PO ONE (11:00)
[2021-03-14] MEDS ORDERED: REGADENOSON 0.4 MG/5 ML SYR (LEXISCAN) IV ONE (11:30)
--- NOTE | 2021-03-14 11:53 | Consultation-Cardiology ---
HPI-Cardiology Cardiology Consultation: Date of Consultation 03/14/21 Time Seen by a Provider: 09:20 Date of Admission 03-13-21 Attending Physician Luzma Escamilla MD Admitting Physician Rich Raygoza MD Consulting Physician Ernie Marr MD HPI: Chief Complaint: Chest pain Ms. Linn is an 80 yr old female admitted to ICU 12. Her daughter is at the bedside. She reports she has been having sharp, right sided sharp chest pain under her right breast along with a feeling of tightness around her chest at the bra line which does improve after she takes her bra off. She reports she has had this discomfort for several years. Yesterday she reports it was worse than usual. She reports she went to [place] and the chest pain started lasting for approx 10-15 minutes. She reports she felt nauseated at the time, but no SOB or palpitations. She reports she went about the rest of her day. She ate supper went back outside to work and developed right sided chest pain again. She reports she felt very nauseated and had emesis. She reports that discomfort persisted so she came to the ED. She denies any SOB, No c/o palpitations. No c/o syncope or near syncope. She reports occ ankle swelling. She reports she follows with a PCP in [place], [place]. She reports she has had several hernia surgeries and her symptoms feel similar to what she has felt each time prior to an abdominal surgery. She reports she has a chronically low HR, but is asymptomatic. Review of Systems-Cardiology Review of Systems Constitutional: No chills, No malaise Eyes: No vision change Ears/Nose/Throat: No epistaxis, No recent hearing loss, No ulcerations Respiratory: As described under HPI Cardiovascular: As described under HPI Gastrointestinal: As described under HPI Genitourinary: No dysuria, No hematuria Musculoskeletal: no symptoms reported Skin: No rash on exposed areas, No ulcerations on exposed areas Psychiatric/Neurological: No anxiety, No depression, No seizure, No focal weakness, No syncope Hematologic: No bleeding abnormalities All Other Systems Reviewed Negative Unless Noted: Yes GTE-Zczbsn-Qcdigr Hx Patient Social History Smoking Status: Never a Smoker 2nd Hand Smoke Exposure: No Have you traveled recently?: No Alcohol Use?: No Immunizations Up To Date Tetanus Booster (TDap): Unknown Past Medical History PMH As described under Assessment. Family Medical History Family Medical History: She reports her mother had CAD and CVA. She reports her father had non-Hodgkin's lymphoma Family History: Patient reports no known family medical history. Allergies and Home Medications Allergies Coded Allergies: No Known Drug Allergies (Unverified , 12/19/11) Home Medications Amlodipine Besylate 5 Mg Tablet, 5 MG PO DAILY, (Reported) Last Action: Reviewed Physical Exam-Cardiology Physical Exam Vital Signs/I&O 03/14/21 03/15/21 03/15/21 03/15/21 23:57 01:00 04:13 06:38 Temp 37.0 Pulse 61 54 62 58 Resp 24 16 B/P (MAP) 137/89 (105) 132/83 (99) Pulse Ox 95 03/15/21 03/15/21 03/15/21 08:00 09:04 10:18 Temp 36.7 35.6 Pulse 61 47 Resp 17 18 B/P (MAP) 139/80 (99) 147/82 (103) Pulse Ox 96 96 O2 Delivery Room Air Room Air 03/14/21 23:59 Intake Total 900 ml Balance 900 ml Capillary Refill : Less Than 3 Seconds Constitutional: AAO x 3, well-developed, well-nourished HEENT: PERRL, hearing is well preserved; No oral hygience is good Neck: No carotid bruit; carotid pulses are 2 + bilaterally Respiratory: No accessory muscle use, No respiratory distress; chest expansion is symmetric, chest is bilaterally symmetric, lungs clear to auscultation Cardiovascular: No JVD; bradycardia, S1 and S2 Gastrointestinal: No tender; soft, audible bowel sounds Extremities: no lower extremity edema bilateral Neurologic/Psychiatric: grossly intact (moves all extremities) Skin: No rash on exposed areas, No ulcerations on exposed areas Data Review Labs Radiology NAME: HORACIO LINN [facility] REC#: [id number] PT STATUS: ADM Kandice : 1940 PHYSICIAN: NUNO FORD MD ADMIT DATE: 03/13/21/ICU Signed Date of Exam:03/13/21 CHEST 1 VIEW, AP/PA ONLY INDICATION: Chest pain and nausea. EXAMINATION: Chest, 03/13/2021. COMPARISON: 06/23/2015. FINDINGS: Heart unremarkable. Pulmonary vasculature within normal limits. There is atelectasis at the right lung base. No infiltrate or effusion. No pneumothorax. IMPRESSION: Right base atelectasis, otherwise negative chest. Dictated by: Dictated on workstation # [id number] Dict: 03/13/212029 Trans: 03/13/212158 [facility] [id number] Interpreted by: GLADYS BARNES MD Electronically signed by: GLADYS BARNES MD 03/13/212158 ECG Impression ECG Initial ECG Rhythm: S.Andrew A/P-Cardiology Assessment/Admission Diagnosis Chest pain of undetermined etiology H/O extensive hernia surgeries at [place] x4 HTN Chronic sinus bradycardia - asymptomatic Recent hysterectomy (Aug 2021) Discussion and Recomendations Chest pain of undetermined etiology - no evidence of ACS Advise MPI to eval perfusion Advise echo to eval structure and function Advise CT of the chest/abd/pelvis d/t h/o and c/o Restart home med of Norvasc for BP Stop BB d/t bradycadia, albeit chronic and asymptomatic Replace electrolytes Monitor lab Further recs will be based on her hospital course We would like to thank medical services for this consult Clinical Quality Measures AMI/AHF: ASA po Prior to arrival: MARCO ANTONIO Schaefer Mar 14, 2021 11:52
--- NOTE | 2021-03-14 12:05 | History & Physicial ---
History of Present Illness History of Present Illness Reason for visit/HPI 80-year-old female presents to [facility] emergency department with chief complaint of substernal chest pain. Apparently she started having this pain in the morning of March 13, 2021. The pain had went away for a little while but returned in the early evening of March 13. With the pain being fairly significant this prompted her to have family bring her to ED. She denied any significant nausea, sweats, or significant shortness of breath. She is on atenolol for hypertension. She has no previous history of coronary disease or cardiac history. She underwent physical exam by her primary care doctor in [place] 3 months ago and apparently everything went well. Date of Admission Mar 13, 2021 at 21:10 Date Seen by a Provider: Mar 14, 2021 Time Seen by a Provider: 06:40 I consulted on this patient on 03/14/21 11:59 Attending Physician Luzma Escamilla MD Admitting Physician Andreas Raygoza MD Consult Allergies and Home Medications Allergies Coded Allergies: No Known Drug Allergies (Unverified , 12/19/11) Patient Home Medication List Home Medication List Reviewed: Yes Past Ksaudop-Bureou-Npvzpd Hx Patient Social History Marrital Status: Employed/Student: retired Drug of Choice: Denies Smoking Status: Never a Smoker 2nd Hand Smoke Exposure: No Recent Hopitalizations: No Have you traveled recently?: No Alcohol Use?: No Immunizations Up To Date Tetanus Booster (TDap): Unknown Seasonal Allergies Seasonal Allergies: No Surgeries Yes (HERNIA REPAIR X 2) Abdominal, Appendectomy Respiratory No Cardiovascular Yes Hypertension Neurological 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 Review of Systems Constitutional: see HPI Physical Exam Vital Signs Vital Signs - First Documented 03/13/21 19:56 Temp 37.1 Pulse 67 Resp 20 B/P (MAP) 167/91 (116) Pulse Ox 95 O2 Delivery Room Air Capillary Refill : Less Than 3 Seconds Height, Weight, BMI Height: 5'2.00" Weight: 137lbs. 0.0oz. 62.423401pe; 27.42 BMI Method:Stated General Appearance: No Apparent Distress HEENT: PERRL/EOMI Neck: Full Range of Motion Respiratory: Lungs Clear Cardiovascular: Regular Rate, Rhythm (with rate of 60) Gastrointestinal: Soft Rectal: Deferred Assessment/Plan Assessment and Plan 1. Chest pain-substernal -Cardiac vs GI. CXR clear -patient admitted for obs in ICU with monitoring -cardiology consulted 2/ HTN -monitor VS Admission Diagnosis 1. Chest pain-substernal -Cardiac vs GI. CXR clear R base atelectasis 2/ HTN Admission Status: Observation Clinical Quality Measures AMI/AHF: ASA po Prior to arrival: ANDREAS Stephens MD Mar 14, 2021 12:05
[2021-03-14] MEDS ORDERED: AMLO-250 PO (12:25)
--- NOTE | 2021-03-14 12:52 | Consultation-Cardiology ---
HPI-Cardiology Cardiology Consultation: Date of Consultation 03/14/21 Time Seen by a Provider: 09:40 Date of Admission Attending Physician Luzma Escamilla MD Admitting Physician Rich Raygoza MD Consulting Physician KOLTON WALTON MD, MA, FACP, FACC, FSCAI, CCDS HPI: Chief Complaint: CC: Chest pain HPI Ms. Linn is an 80 yr old female admitted to ICU 12. Her daughter is at the bedside. She reports she has been having sharp, right sided sharp chest pain under her right breast along with a feeling of tightness around her chest at the bra line which does improve after she takes her bra off. She reports she has had this discomfort for several years. Yesterday she reports it was worse than usual. She reports she went to [facility] and the chest pain started lasting for approx 10-15 minutes. She reports she felt nauseated at the time, but no SOB or palpitations. She reports she went about the rest of her day. She ate supper went back outside to work and developed right sided chest pain again. She reports she felt very nauseated and had emesis. She reports that discomfort persisted so she came to the ED. She denies any SOB, No c/o palpitations. No c/o syncope or near syncope. She reports occ ankle swelling. She reports she follows with a PCP in [place], [place]. She reports she has had several hernia surgeries and her symptoms feel similar to what she has felt each time prior to an abdominal surgery. She reports she has a chronically low HR, but is asympto matic. Review of Systems-Cardiology Review of Systems Constitutional: No chills, No malaise Eyes: No vision change Ears/Nose/Throat: No epistaxis, No recent hearing loss, No ulcerations Respiratory: As described under HPI Cardiovascular: As described under HPI Gastrointestinal: As described under HPI Genitourinary: No dysuria, No hematuria Musculoskeletal: no symptoms reported Skin: No rash on exposed areas, No ulcerations on exposed areas Psychiatric/Neurological: No anxiety, No depression, No seizure, No focal weakness, No syncope Hematologic: No bleeding abnormalities All Other Systems Reviewed Negative Unless Noted: Yes IWN-Xnjyqi-Asksif Hx Patient Social History Marrital Status: Employed/Student: retired Smoking Status: Never a Smoker 2nd Hand Smoke Exposure: No Have you traveled recently?: No Alcohol Use?: No Immunizations Up To Date Tetanus Booster (TDap): Unknown Past Medical History PMH As described under Assessment. Family Medical History Family Medical History: She reports her mother had CAD and CVA. She reports her father had non-Hodgkin's lymphoma Family History: Patient reports no known family medical history. Allergies and Home Medications Allergies Coded Allergies: No Known Drug Allergies (Unverified , 12/19/11) Home Medications Amlodipine Besylate 5 Mg Tablet, 5 MG PO DAILY, (Reported) Last Action: Reviewed Patient Home Medication List Home Medication List Reviewed: Yes Physical Exam-Cardiology Physical Exam Vital Signs/I&O 03/14/21 03/14/21 03/14/21 03/14/21 01:00 01:00 02:00 03:00 Pulse 58 58 49 49 Resp 18 16 14 B/P (MAP) 120/73 (89) 123/82 (96) 111/61 (78) Pulse Ox 95 97 95 O2 Delivery Room Air Room Air Room Air 03/14/21 03/14/21 03/14/21 03/14/21 04:00 04:00 07:00 07:30 Temp 36.4 Pulse 45 53 44 Resp 28 11 B/P (MAP) 136/80 (98) 161/90 (113) Pulse Ox 93 O2 Delivery Room Air Room Air 03/14/21 03/14/21 03/14/21 03/14/21 07:53 08:28 11:39 12:30 Temp 36.4 36.4 Pulse 43 52 Resp 20 19 B/P (MAP) 161/91 (114) 161/90 (113) Pulse Ox 93 O2 Delivery Room Air Room Air Room Air Capillary Refill : Less Than 3 Seconds Constitutional: AAO x 3, well-developed, well-nourished HEENT: PERRL, hearing is well preserved; No oral hygience is good Neck: No carotid bruit; carotid pulses are 2 + bilaterally Respiratory: No accessory muscle use, No respiratory distress; chest expansion is symmetric, chest is bilaterally symmetric, lungs clear to auscultation Cardiovascular: No JVD; bradycardia, S1 and S2 Gastrointestinal: No tender; soft, audible bowel sounds Extremities: no lower extremity edema bilateral Neurologic/Psychiatric: grossly intact (moves all extremities) Skin: No rash on exposed areas, No ulcerations on exposed areas Data Review Labs Laboratory Tests 03/13/21 20:08: White Blood Count 4.7, Red Blood Count 4.47, Hemoglobin 13.3, Hematocrit 41, Mean Corpuscular Volume 92, Mean Corpuscular Hemoglobin 30, Mean Corpuscular Hemoglobin Concent 33, Red Cell Distribution Width 14.1, Platelet Count 217, Mean Platelet Volume 9.4, Immature Granulocyte % (Auto) 0, Neutrophils (%) (Auto) 61, Lymphocytes (%) (Auto) 27, Monocytes (%) (Auto) 6, Eosinophils (%) (Auto) 4, Basophils (%) (Auto) 1, Neutrophils # (Auto) 2.8, Lymphocytes # (Auto) 1.3, Monocytes # (Auto) 0.3, Eosinophils # (Auto) 0.2, Basophils # (Auto) 0.1, Immature Granulocyte # (Auto) 0.0, Prothrombin Time 13.5, INR Comment 1.0, Activated Partial Thromboplast Time 29, Sodium Level 143, Potassium Level 3.4L, Chloride Level 106, Carbon Dioxide Level 28, Anion Gap 9, Blood Urea Nitrogen 11, Creatinine 0.82, Estimat Glomerular Filtration Rate > 60, BUN/Creatinine Ratio 13, Glucose Level 128H, Calcium Level 10.0, Corrected Calcium 10.0, Magnesium Level 2.0, Total Bilirubin 0.5, Aspartate Amino Transf (AST/SGOT) 99H, Alanine Aminotransferase (ALT/SGPT) 46, Alkaline Phosphatase 89, Myoglobin 49.8, Troponin I < 0.028, B-Type Natriuretic Peptide 76.6, Total Protein 7.1, Albumin 4.0, Lipase 15 03/14/21 01:45: White Blood Count 5.1, Red Blood Count 4.04, Hemoglobin 11.9, Hematocrit 37, Mean Corpuscular Volume 91, Mean Corpuscular Hemoglobin 30, Mean Corpuscular Hemoglobin Concent 32, Red Cell Distribution Width 14.1, Platelet Count 206, Mean Platelet Volume 9.0, Immature Granulocyte % (Auto) 0, Neutrophils (%) (Auto) 67, Lymphocytes (%) (Auto) 24, Monocytes (%) (Auto) 7, Eosinophils (%) (Auto) 1, Basophils (%) (Auto) 1, Neutrophils # (Auto) 3.4, Lymphocytes # (Auto) 1.2, Monocytes # (Auto) 0.4, Eosinophils # (Auto) 0.0, Basophils # (Auto) 0.0, Immature Granulocyte # (Auto) 0.0, Sodium Level 144, Potassium Level 3.4L, Chloride Level 107, Carbon Dioxide Level 25, Anion Gap 12, Blood Urea Nitrogen 10, Creatinine 0.72, Estimat Glomerular Filtration Rate > 60, BUN/Creatinine Ratio 14, Glucose Level 111H, Calcium Level 8.9, Troponin I < 0.028, Triglycerides Level 49, Cholesterol Level 155, LDL Cholesterol Direct 84, VLDL Cholesterol 10, HDL Cholesterol 61H 03/14/21 08:08: Troponin I < 0.028 A/P-Cardiology Assessment/Admission Diagnosis Chest pain of undetermined etiology H/O extensive hiatal hernia surgeries at [place] x 4 HTN Chronic sinus bradycardia - asymptomatic Recent hysterectomy (Aug 2021) Discussion and Recomendations Advise MPI to eval perfusion Advise echo to eval structure and function Advise CT of the chest/abd/pelvis d/t h/o and c/o Restart home med of Norvasc for BP Stop BB d/t bradycadia, albeit chronic and asymptomatic Replace electrolytes Monitor lab Further recs will be based on her hospital course We would like to thank Medical services for this consult Clinical Quality Measures AMI/AHF: ASA po Prior to arrival: KOLTON Hernandes MD FACP FAC CCDS Mar 14, 2021 12:52
[2021-03-14] MEDS ORDERED: NS 100 ML (IVPB) BAG IV ONE (13:00)
[2021-03-14] MEDS ORDERED: IOHEXOL 350 MG/ML 100 ML (OMNIPAQUE 350) VIAL IV ONE (13:00)
[2021-03-14] MEDS ORDERED: CATHETER FLUSH 10 ML SYR IV PRN (13:00)
[2021-03-14] MEDS ORDERED: HOLD METFORMIN - RECEIVED CONTRAST 20 ML VIAL IV SCH (13:00)
--- NOTE | 2021-03-14 15:03 | Diagnostic Imaging Report ---
PROCEDURE: CT chest, abdomen, and pelvis with contrast. TECHNIQUE: Multiple contiguous axial images were obtained through the chest, abdomen, and pelvis after the administration of intravenous contrast. Auto Exposure Controls were utilized during the CT exam to meet ALARA standards for radiation dose reduction. INDICATION: Chest pain and hernia. COMPARISON: Correlation is made with the prior CT chest and abdomen from 06/24/2015. FINDINGS: CT CHEST: No axillary lymphadenopathy is detected. No definite mediastinal or hilar lymphadenopathy is detected. The heart is enlarged. No pericardial or pleural fluid is identified. The previously noted large paraesophageal hiatal hernia has been repaired. There is some minimal atelectasis in the left lower lobe. Otherwise, the lungs are clear. No mass or infiltrate is detected. IMPRESSION: Postop changes of paraesophageal hiatal hernia repair. No acute feature in the chest is identified. There is some minimal subsegmental atelectasis at the left base. CT ABDOMEN AND PELVIS: No discrete liver mass is identified. The gallbladder appears to be stone filled. No biliary ductal dilatation is seen. The pancreas and spleen are unremarkable. No adrenal mass is identified. The kidneys are unremarkable. The aorta is nonaneurysmal. There is a fat-containing midline ventral hernia. The bowel loops appear to be non-obstructed. There is moderate stool in the right colon. There is significant diverticulosis of the sigmoid colon. There is no evidence of acute diverticulitis. No free fluid or fluid collection is seen. The bladder is unremarkable. IMPRESSION: 1. Cholelithiasis. 2. Fat-containing ventral hernia. 3. Uncomplicated diverticulosis. Dictated by: Dictated on workstation # [id number]
[2021-03-14] MEDS: ANTACID SUSP 30 ML UDC (MYLANTA) PO PRN (17:20)
[2021-03-15 04:13] VITALS: BP 132/83
[2021-03-15] MEDS: CATHETER FLUSH 10 ML SYR IV SCH ×2 (05:54→14:20)
--- NOTE | 2021-03-15 07:19 | Progress Note ---
Subjective Date Seen by a Provider: Mar 15, 2021 Time Seen by a Provider: 06:35 Subjective/Events-last exam Patient appears to be resting comfortably this morning. Her daughter was present in the room during discussion. We reviewed her test results from yesterday. Patient as well as daughter are aware of cholelithiasis findings by CT. Apparently when she ate yesterday she did have discomfort within a few hours that subsided after one hour. The discomfort was in the right upper quadrant of her abdomen. Objective Exam Vital Signs Date Time Temp Pulse Resp B/P (MAP) Pulse Ox O2 Delivery O2 Flow Rate FiO2 03/15/21 04:13 37.0 62 16 132/83 (99) 95 03/15/21 01:00 54 03/14/21 23:57 61 24 137/89 (105) 03/14/21 20:09 50 21 140/76 (97) Room Air 03/14/21 20:00 Room Air 03/14/21 19:50 37.4 03/14/21 19:00 70 03/14/21 16:00 36.6 51 16 129/75 (93) 95 03/14/21 13:00 48 03/14/21 13:00 48 21 132/70 (90) Room Air 03/14/21 12:30 47 22 () Room Air 03/14/21 12:00 64 20 132/70 (90) 95 Room Air 03/14/21 11:39 36.4 03/14/21 08:28 36.4 43 20 161/91 (114) 93 Room Air 03/14/21 07:53 Room Air 03/14/21 07:30 44 11 161/90 (113) Room Air I & O 03/15/21 07:00 Intake Total 900 ml Balance 900 ml Capillary Refill : Less Than 3 Seconds General Appearance: No Apparent Distress Neck: Supple Respiratory: Lungs Clear Cardiovascular: Regular Rate, Rhythm Gastrointestinal: soft; No guarding Results Lab Laboratory Tests 03/14/21 08:08: Troponin I < 0.028 Assessment/Plan Assessment/Plan Assess & Plan/Chief Complaint 1. Chest pain-substernal -Cardiac vs GI. CXR clear -patient admitted for obs in ICU with monitoring -cardiology consulted 03/15 -results of echocardiogram as well as CT were reviewed with patient and her daughter -cardiac stress test is planned for today 2/ HTN -monitor VS 03/15 -tolerating Norvasc 3. Right upper quadrant abdominal pain -Findings by CT cholelithiasis -We'll await results from stress test for further planning. I suspect patient if surgery is needed would want to have this in [place] Clinical Quality Measures Admission Status Admission Dx 1. Chest pain-substernal -Cardiac vs GI. CXR clear R base atelectasis 2/ HTN AMI/AHF: ASA po Prior to arrival: ANDREAS Stephens MD Mar 15, 2021 07:19
[2021-03-15] MEDS ORDERED: CATHETER FLUSH 10 ML SYR IV PRN (07:30)
[2021-03-15] MEDS ORDERED: REGADENOSON 0.4 MG/5 ML SYR (LEXISCAN) IV ONE (08:58)
[2021-03-15 09:04] VITALS: BP 139/80
[2021-03-15 10:18] VITALS: BP 147/82
--- NOTE | 2021-03-15 11:17 | Progress Note - Cardiology ---
Cardiology SOAP Progress Note Subjective: No c/o CP this morning No c/o SOB, palpitations Feels somewhat better today Objective: I&O/Vital Signs 03/16/21 00:00 Intake Total 600 ml Balance 600 ml Weight (Pounds): 137 Weight (Ounces): 0.0 Weight (Calculated Kilograms): 62.820761 Constitutional: AAO x 3, well-developed, well-nourished Respiratory: No accessory muscle use, No respiratory distress; chest expansion is symmetric, chest is bilaterally symmetric, lungs clear to auscultation Cardiovascular: No JVD; bradycardia, S1 and S2 Gastrointestional: No tender; soft, audible bowel sounds Extremities: no lower extremity edema bilateral Neurologic/Psychiatric: grossly intact (moves all extremities) Skin: No rash on exposed areas, No ulcerations on exposed areas Results/Procedures: Labs Procedures NAME: HORACIO BUTLER [facility] REC#: [id number] PT STATUS: ADM Kandice : 1940 PHYSICIAN: MARCO ANTONIO VARNER ADMIT DATE: 03/13/21/ICU Signed Date of Exam:03/14/21 CT CHEST/ABDOMEN/PELVIS W PROCEDURE: CT chest, abdomen, and pelvis with contrast. TECHNIQUE: Multiple contiguous axial images were obtained through the chest, abdomen, and pelvis after the administration of intravenous contrast. Auto Exposure Controls were utilized during the CT exam to meet ALARA standards for radiation dose reduction. INDICATION: Chest pain and hernia. COMPARISON: Correlation is made with the prior CT chest and abdomen from 06/24/2015. FINDINGS: CT CHEST: No axillary lymphadenopathy is detected. No definite mediastinal or hilar lymphadenopathy is detected. The heart is enlarged. No pericardial or pleural fluid is identified. The previously noted large paraesophageal hiatal hernia has been repaired. There is some minimal atelectasis in the left lower lobe. Otherwise, the lungs are clear. No mass or infiltrate is detected. IMPRESSION: Postop changes of paraesophageal hiatal hernia repair. No acute feature in the chest is identified. There is some minimal subsegmental atelectasis at the left base. CT ABDOMEN AND PELVIS: No discrete liver mass is identified. The gallbladder appears to be stone filled. No biliary ductal dilatation is seen. The pancreas and spleen are unremarkable. No adrenal mass is identified. The kidneys are unremarkable. The aorta is nonaneurysmal. There is a fat-containing midline ventral hernia. The bowel loops appear to be non-obstructed. There is moderate stool in the right colon. There is significant diverticulosis of the sigmoid colon. There is no evidence of acute diverticulitis. No free fluid or fluid collection is seen. The bladder is unremarkable. IMPRESSION: 1. Cholelithiasis. 2. Fat-containing ventral hernia. 3. Uncomplicated diverticulosis. Dictated by: Dictated on workstation # [id number] Dict: 03/14/21 1453 Trans: 03/14/21 1557 [id number] Interpreted by: WALKER MADDOX MD Electronically signed by: WALKER MADDOX MD 03/14/21 1557 A/P: Assessment: Chest pain of undetermined etiology Echocardiogram of 03-14-21: - LVEF 65-70%. Grade 1 diastolic dysfunction. Mild mitral valve calcification. PASP 35-40mmHg H/O extensive hiatal hernia surgeries at [place] x 4 CTA of the chest on 03-14-21 - Cholelithiasis. Fat-containing ventral hernia. Uncomplicated diverticulosis HTN - controlled Chronic sinus bradycardia - asymptomatic Recent hysterectomy (Aug 2021) Plan: MPI - pending Replace electrolytes Monitor lab Continue current regimen Clinical Quality Measures AMI/AHF: ASA po Prior to arrival: MARCO ANTONIO Schaefer Mar 15, 2021 11:16
[2021-03-15] MEDS: CLOPIDOGREL 75 MG (PLAVIX) TABLET PO SCH (11:59)
[2021-03-15] MEDS: ASPIRIN E.C. 81 MG (ECOTRIN) TAB PO SCH (11:59)
[2021-03-15 12:00] VITALS: BP 153/77
[2021-03-15] MEDS: ENOXAPARIN 60 MG/0.6 ML (LOVENOX) SYR SC SCH (12:00)
[2021-03-15 16:00] VITALS: BP 117/62
--- NOTE | 2021-03-15 17:00 | STRESS TEST ---
DATE OF SERVICE: 03/15/2021 RESTING AND POST REGADENOSON TECHNETIUM-99M TETROFOSMIN SPECT CT IMAGING ORDERING PHYSICIAN: Dayna Shearer APRN ATTENDING PHYSICIAN: Dr. Dumont. PRIMARY PHYSICIAN: Dr. Raygoza. CLINICAL DIAGNOSIS: Chest discomfort. Baseline images were carried out after injection of 10.27 mCi of technetium-99m Tetrofosmin. This was followed by 0.4 mg regadenoson and 29.3 mCi of technetium-99m Tetrofosmin for stress imaging. The electrocardiogram showed sinus rhythm at baseline. It did not change significantly with regadenoson infusion. The patient noted some nausea and chest tightness, which resolved in a minute or two of the adenosine infusion. The electrocardiogram did not change significantly. Review of images at rest and following stress does not indicate distinct perfusion defects consistent with significant myocardial ischemia or infarction. Gated images show normal global left ventricular systolic function with normal regional wall motion. Left ventricular ejection fraction is calculated to be 65%. Left ventricular end diastolic volume is 48 mL. TID is absent (1.11). CONCLUSIONS: 1. No evidence of significant myocardial ischemia or infarction on this study. 2. Normal regional wall motion. 3. Normal global left ventricular systolic function with a calculated ejection fraction of 65%. Job ID: [id number] DocumentID: [id number] Dictated Date: 03/15/2021 16:21:50 [employer] Date: 03/15/2021 16:59:15 Dictated By: KOLTON WALTON MD, MA, FACP, FACC,
--- NOTE | 2021-03-15 17:33 | Progress Note - Cardiology ---
Cardiology SOAP Progress Note Subjective: No cp or palp or syncope or shortness of breath Wishes to go matt Objective: I&O/Vital Signs 03/15/21 03/15/21 03/15/21 03/15/21 06:38 08:00 09:04 10:18 Temp 36.7 35.6 Pulse 58 61 47 Resp 17 18 B/P (MAP) 139/80 (99) 147/82 (103) Pulse Ox 96 96 O2 Delivery Room Air Room Air 03/15/21 03/15/21 12:00 16:00 Temp 36.6 36.4 Pulse 49 46 Resp 18 16 B/P (MAP) 153/77 (102) 117/62 (80) Pulse Ox 96 95 O2 Delivery Room Air Room Air 03/15/21 00:00 Intake Total 900 ml Balance 900 ml Weight (Pounds): 137 Weight (Ounces): 0.0 Weight (Calculated Kilograms): 62.353032 Constitutional: AAO x 3, well-developed, well-nourished Respiratory: chest expansion is symmetric, chest is bilaterally symmetric, lungs clear to auscultation Cardiovascular: bradycardia, S1 and S2 Gastrointestional: soft, audible bowel sounds Extremities: no lower extremity edema bilateral Neurologic/Psychiatric: grossly intact Skin: No rash on exposed areas, No ulcerations on exposed areas Results/Procedures: Labs Laboratory Tests 03/13/21 20:08 03/14/21 01:45 A/P: Assessment: Chest pain of undetermined etiology, noncardiac (cardiac enzymes negative for A CS, MPI does not show ischemia or infarction) - Echocardiogram of 03-14-21: LVEF 65-70%. Grade 1 diastolic dysfunction. Mild mitral valve calcification. PASP 35-40mmHg - MPI of 03/15/21: no ischemia or infarction, LVEF normal H/O extensive hiatal hernia surgeries at [facility] x 4 - CTA of the chest on 03-14-21: Cholelithiasis. Fat-containing ventral hernia. Uncomplicated diverticulosis HTN - controlled Chronic sinus bradycardia - asymptomatic Recent hysterectomy (Aug 2021) Plan: I discussed her cardiac w/u with her and her family and answered questions Outpt cardiac f/u advised Advise w/u for non-cardiac causes of chest pain (with pcp) I discussed her case with Dr Raygoza on the phone Clinical Quality Measures AMI/AHF: ASA po Prior to arrival: KOLTON Hernandes MD FACP FAC CCDS Mar 15, 2021 17:33
--- NOTE | 2021-03-15 17:41 | Discharge Summary ---
Diagnosis/Chief Complaint Date of Admission Mar 13, 2021 at 21:10 Date of Discharge Discharge Date: Mar 15, 2021 Discharge Time: 18:00 Discharge Diagnosis 1 Reason Hospital Visit 80-year-old female presents to [facility] emergency department with chief complaint of substernal chest pain. Apparently she started having this pain in the morning of March 13, 2021. The pain had went away for a little while but returned in the early evening of March 13. With the pain being fairly significant this prompted her to have family bring her to ED. She denied any significant nausea, sweats, or significant shortness of breath. She is on atenolol for hypertension. She has no previous history of coronary disease or cardiac history. She underwent physical exam by her primary care doctor in [place] 3 months ago and apparently everything went well. Discharge Summary Hospital Course Labs Laboratory Tests 03/13/21 20:08: Potassium Level 3.4L, Glucose Level 128H, Aspartate Amino Transf (AST/SGOT) 99H 03/14/21 01:45: Potassium Level 3.4L, Glucose Level 111H, HDL Cholesterol 61H 03/14/21 08:08: Procedures None. Discharge Physical Examination Allergies: Coded Allergies: No Known Drug Allergies (Unverified , 12/19/11) Vitals & I&Os Vital Signs Date Time Temp Pulse Resp B/P (MAP) Pulse Ox O2 Delivery O2 Flow Rate FiO2 03/15/21 16:00 36.4 46 16 117/62 (80) 95 Room Air Discharge Home Medications Reviewed and agree with Discharge Medication list on patient's Discharge Instruction sheet Instructions to Patient/Family Please see electronic discharge instructions given to patient. Clinical Quality Measures AMI/AHF: ASA po Prior to arrival: ANDREAS Stephens MD Mar 15, 2021 17:41
[2021-03-15] MEDS ORDERED: MTP25TSR PO (18:09)
--- NOTE | 2021-03-15 18:10 | Discharge Inst-Simple/Standard ---
Discharge Inst-Standard Reconcile Patient Problems Problems Reviewed?: Yes Discharge Medications New, Converted or Re-Newed RX: Transmitted to Pharmacy ([facility]) Patient Instructions/Follow Up Plan of Care/Instructions/FU: Dr Marr in 2 weeks Activity as Tolerated: Yes Discharge Diet: Regular Diet (heart healthy) Return to [facility] Hospital For: worsening chest pain, shortness of breath ANDREAS MATA MD Mar 15, 2021 18:10
== END 2021-03-15 18:52 | disposition home or self-care (01) ==
LOC: EDUNIT# 19:51 → ER 19:53 → ICU 21:10 → CSD 03-14 20:06
PROVIDERS: ADMIT Family Medicine; ATTEND Family Medicine
DX: R07.2 Precordial pain (principal); I24.9 Acute ischemic heart disease, unspecified; I05.8 Other rheumatic mitral valve diseases; I10 Essential (primary) hypertension; R00.1 Bradycardia, unspecified; Z79.899 Other long term (current) drug therapy; Z98.890 Other specified postprocedural states; Z90.710 Acquired absence of both cervix and uterus
CPT/HCPCS: 71045; 71260; 74177; 78452; 80048; 80053; 80061; 83690; 83735; 83874; 83880; 84484 ×2; 85025 ×2; 85610; 85730; 93005 ×3; 93017; 93306; 99285; A9502; 36415; 96372; 96374

== ENCOUNTER 2023-01-06 14:29 | Inpatient (IN) | payer MEDICARE ==
[~2023-01-06] VITALS: Ht 160 cm; Wt 68.0 kg
[~2023-01-06 14:29] MED LIST changes: +AMLO-250 PO; +MTP25TSR PO
[2023-01-06 15:02] LABS: BASOPHILS % (AUTO) 0 % (0-10); EOSINOPHILS # (AUTO) 0.1 10^3/uL (0.0-0.3); EOSINOPHILS % (AUTO) 1 % (0-10); HEMATOCRIT 41 % (35-52); HEMOGLOBIN 13.6 g/dL (11.5-16.0); LYMPHOCYTES # (AUTO) 0.6 10^3/uL (1.0-4.0); LYMPHOCYTES % (AUTO) 5 % (12-44); MEAN CORPUSCULAR HEMOGLOBIN 30 pg (25-34); MEAN CORPUSCULAR HGB CONC 33 g/dL (32-36); MEAN CORPUSCULAR VOLUME 90 fL (80-99); MEAN PLATELET VOLUME 9.2 fL (9.0-12.2); MONOCYTES # (AUTO) 0.7 10^3/uL (0.0-1.0); MONOCYTES % (AUTO) 7 % (0-12); NEUTROPHILS # (AUTO) 8.9 10^3/uL (1.8-7.8); NEUTROPHILS % (AUTO) 87 % (42-75); PLATELET COUNT 255 10^3/uL (130-400); WHITE BLOOD COUNT 10.2 10^3/uL (4.3-11.0)
[2023-01-06 15:04] LABS: POTASSIUM 3.8 MMOL/L (3.6-5.0)
--- NOTE | 2023-01-06 15:04 | ED Abdominal Pain ---
General Chief Complaint: Abdominal/GI Problems Stated Complaint: CHEST PAIN Nursing Triage Note: PT TO ED W/ C/O CP ONSET X5 DAYS BUT POINTS TO HER DIAPHRAGM ET LOWER TO ABD WHEN ASKED TO POINT WHERE PAIN IS. ALSO C/O DRY MOUTH ET DECREASED APPETITE. NO OTHER C/O VOICED. Source of Information: Patient Exam Limitations: No Limitations History of Present Illness Date Seen by Provider: Jan 06, 2023 Time Seen by Provider: 14:46 Initial Comments 82-year-old female presents to the ED with complaints of allover abdominal pain. Reports that pain started on Sunday. She reports the pain goes up into mid upper abdomen all the way down to lower abdomen. She denies any nausea or vomiting. She reports that she had multiple episodes of diarrhea for about 2 hours tween 10 AM and 12 PM. She denies fevers, chest pain, shortness of air. Oxygen saturation was found to be in the upper 80s upon arrival on room air. Patient denies feeling short of breath, denies tobacco use, denies history of COPD, asthma or heart failure. She denies any swelling in her legs. Does report feeling bloated in her abdomen. Past medical history includes hypertension which she takes 1 medication for. She has also had 3 hernia repairs, and believes she has another hernia. Allergies and Home Medications Allergies Coded Allergies: No Known Drug Allergies (Unverified , 12/19/11) Patient Home Medication List Home Medication List Reviewed: Yes Metoprolol Succinate (Metoprolol Succinate) 25 Mg Tab.er.24h, 25 MG PO DAILY Prescribed by: ANDREAS MATA on 03/15/21 7269 Review of Systems Review of Systems Constitutional: see HPI Past Dobwmpl-Rgxrzs-Ypoidr Hx Patient Social History Tobacco Use?: No Use of E-Cig and/or Vaping dev: No Substance use?: No Alcohol Use?: No Pt feels they are or have been: No Immunizations Up To Date Tetanus Booster (TDap): Unknown Seasonal Allergies Seasonal Allergies: No Past Medical History Surgeries: Yes (HERNIA REPAIR X 2) Abdominal, Appendectomy Respiratory: No Cardiac: Yes Hypertension Neurological: No CONTACT LENS FITTER History: Menopausal Genitourinary: No Gastrointestinal: Yes (S/P HERNIA REPAIR X 2) Abdominal Hernia Musculoskeletal: No Endocrine: No HEENT: No Cancer: No Psychosocial: No Integumentary: No Blood Disorders: No Adverse Reaction/Blood Tranf: No Family Medical History Patient reports no known family medical history. Physical Exam Vital Signs Vital Signs - First Documented Capillary Refill : Less Than 3 Seconds Height/Weight/BMI Height: 5'2.00" Weight: 137lbs. 0.0oz. [id number]; 25.00 BMI Method:Stated General Appearance: WD/WN, no apparent distress Neck: supple, normal inspection Respiratory: lungs clear Cardiovascular: regular rate, rhythm Gastrointestinal: normal bowel sounds, soft, tenderness (Generalized tenderness, worse mid upper, left upper, left lower) Extremities: normal range of motion, normal inspection Neurologic/Psychiatric: alert, normal mood/affect Skin: normal color, warm/dry Focused Exam Lactate Level 01/06/23 15:49: Lactic Acid Level 0.95 Lactic Acid Level Laboratory Tests Test 01/06/23 15:49 Lactic Acid Level 0.95 MMOL/L (0.50-2.00) Procedures/Interventions Suture Size: 5-0 Progress/Results/Core Measures Results/Orders Lab Results Laboratory Tests Test 01/06/23 15:00 01/06/23 15:22 01/06/23 15:49 Range/Units White Blood Count 10.2 4.3-11.0 10^3/uL Red Blood Count 4.54 3.80-5.11 10^6/uL Hemoglobin 13.6 11.5-16.0 g/dL Hematocrit 41 35-52 % Mean Corpuscular Volume 90 80-99 fL Mean Corpuscular Hemoglobin 30 25-34 pg Mean Corpuscular Hemoglobin Concent 33 32-36 g/dL Red Cell Distribution Width 13.8 10.0-14.5 % Platelet Count 255 130-400 10^3/uL Mean Platelet Volume 9.2 9.0-12.2 fL Immature Granulocyte % (Auto) 0 % Neutrophils (%) (Auto) 87 H 42-75 % Lymphocytes (%) (Auto) 5 L 12-44 % Monocytes (%) (Auto) 7 0-12 % Eosinophils (%) (Auto) 1 0-10 % Basophils (%) (Auto) 0 0-10 % Neutrophils # (Auto) 8.9 H 1.8-7.8 10^3/uL Lymphocytes # (Auto) 0.6 L 1.0-4.0 10^3/uL Monocytes # (Auto) 0.7 0.0-1.0 10^3/uL Eosinophils # (Auto) 0.1 0.0-0.3 10^3/uL Basophils # (Auto) 0.0 0.0-0.1 10^3/uL Immature Granulocyte # (Auto) 0.0 0.0-0.1 10^3/uL Neutrophils % (Manual) 87 % Lymphocytes % (Manual) 4 % Monocytes % (Manual) 7 % Eosinophils % (Manual) 2 % Basophils % (Manual) 0 % Band Neutrophils 0 % Blood Morphology Comment NORMAL Prothrombin Time 13.2 12.2-14.7 SEC INR Comment 1.0 0.8-1.4 Activated Partial Thromboplast Time 30 24-35 SEC D-Dimer 3.61 H 0.00-0.49 UG/ML Sodium Level 139 135-145 MMOL/L Potassium Level 3.8 3.6-5.0 MMOL/L Chloride Level 105 98-107 MMOL/L Carbon Dioxide Level 20 L 21-32 MMOL/L Anion Gap 14 5-14 MMOL/L Blood Urea Nitrogen 14 7-18 MG/DL Creatinine 0.74 0.60-1.30 MG/DL Estimat Glomerular Filtration Rate 80 BUN/Creatinine Ratio 19 Glucose Level 111 H 70-105 MG/DL Calcium Level 9.6 8.5-10.1 MG/DL Corrected Calcium 9.6 8.5-10.1 MG/DL Magnesium Level 2.0 1.6-2.4 MG/DL Total Bilirubin 0.9 0.1-1.0 MG/DL Aspartate Amino Transf (AST/SGOT) 19 5-34 U/L Alanine Aminotransferase (ALT/SGPT) 14 0-55 U/L Alkaline Phosphatase 52 40-136 U/L Troponin I < 0.028 <0.028 NG/ML B-Type Natriuretic Peptide 92.4 <100.0 PG/ML Total Protein 7.6 6.4-8.2 GM/DL Albumin 4.0 3.2-4.5 GM/DL Amylase Level 77 25-125 U/L Lipase 10 8-78 U/L Urine Color YELLOW Urine Clarity CLOUDY Urine pH 6.0 5-9 Urine Specific [place] 1.025 H 1.016-1.022 Urine Protein TRACE H NEGATIVE Urine Glucose (UA) NEGATIVE NEGATIVE Urine Ketones 1+ H NEGATIVE Urine Nitrite NEGATIVE NEGATIVE Urine Bilirubin 1+ H NEGATIVE Urine Urobilinogen 0.2 < = 1.0 MG/DL Urine Leukocyte Esterase TRACE H NEGATIVE Urine RBC (Auto) TRACE-I H NEGATIVE Urine RBC RARE /HPF Urine WBC 0-2 /HPF Urine Squamous Epithelial Cells 0-2 /HPF Urine Crystals NONE /LPF Urine Bacteria NEGATIVE /HPF Urine Casts NONE /LPF Urine Mucus SMALL H /LPF Urine Culture Indicated NO Lactic Acid Level 0.95 0.50-2.00 MMOL/L Micro Results Microbiology 01/06/23 Blood Culture - Preliminary, Resulted No growth My Orders Orders - EZEQUIEL RIDER APRN Ekg Tracing (01/06/23 14:32) Comprehensive Metabolic Panel (01/06/23 14:56) Lipase (01/06/23 14:56) Amylase (01/06/23 14:56) Ua Culture If Indicated (01/06/23 14:56) Cbc With Automated Diff (01/06/23 14:56) Magnesium (01/06/23 14:56) Chest 1 View, Ap/Pa Only (01/06/23 14:56) Protime With Inr (01/06/23 14:56) Partial Thromboplastin Time (01/06/23 14:56) O2 (01/06/23 14:56) Monitor-Rhythm Ecg Trace Only (01/06/23 14:56) Bnp [place] (01/06/23 14:56) Fibrin Degradation Products (01/06/23 14:56) Troponin I Stacey (01/06/23 14:56) Manual Differential (01/06/23 15:00) Ct Angio Chest/Abd W (01/06/23 15:42) Blood Culture (01/06/23 15:43) Lactic Acid Analyzer (01/06/23 15:43) Ns Iv 1000 Ml (Sodium Chloride 0.9%) (01/06/23 15:45) Iohexol Injection (Omnipaque 350 Mg/Ml 1 (01/06/23 16:00) Received Contrast (Hold Metformin- Contr (01/06/23 16:00) Ns (Ivpb) (Sodium Chloride 0.9% Ivpb Bag (01/06/23 16:00) Ed Admission (Communication) (01/06/23 17:19) Piperacillin Sodium/Tazobactam (Zosyn Vi (01/06/23 17:30) Medications Given in ED Vital Signs/I&O 01/06/23 01/06/23 14:32 14:32 Temp 37.7 Pulse 97 Resp 16 B/P (MAP) 138/91 (107) Pulse Ox 94 88 O2 Delivery Nasal Cannula Nasal Cannula O2 Flow Rate 2.00 2.00 01/07/23 00:00 Intake Total 1000 ml Balance 1000 ml Blood Pressure Mean: 107 Progress Progress Note : Time: 15:04 Progress Note Patient seen and evaluated, resting comfortably in bed, no acute distress. Based on exam and symptoms, work-up initiated including CBC, CMP, troponin, magnesium, D-dimer, BNP, amylase, lipase, UA, chest x-ray, EKG. 1543 Labs and chest x-ray reviewed. CBC grossly normal, neutrophil % elevated 87. CMP shows slightly decreased CO2 20. Troponin negative. BNP normal. Amylase and lipase normal. Coags normal. D-dimer elevated. CT angio chest and abdomen ordered. UA shows 1+ ketones, trace leukocytes, trace RBCs. Chest x-ray shows bibasilar infiltrates or atelectasis. Lactic acid and blood cultures x2 ordered. Will wait for CT result prior to starting antibiotics for pneumonia because the CT will likely help confirm if this is pneumonia. 1704 Lactic acid normal. Patient does not appear to be septic. CT reviewed. No PE identified. Infiltrates of left upper lobe noted, consistent with pneumonia. Stable right lobe thyroid mass. Diverticulitis noted, no abcess or bowel obstruction. Possible ileus. Fat-containing umbilical hernia. I would like to admit patient for hypoxia due to pneumonia as well as diverticulitis. All results discussed with patient and daughter. Patient agrees to admission. I spoke with Dr. Almazan, surgery, regarding patient. He would like patient to be on a clear liquid diet and recommends Zosyn if Dr. Rodriguez, hospitalist agrees with Zosyn for pneumonia as well. I spoke with Dr. Rodriguez regarding admission. She ag jonathan with Zosyn for treatment. She wants patient admitted inpatient to med/surg. She will place acute orders. Initial ECG Impression Date: Jan 06, 2023 Initial ECG Impression Time: 14:38 Initial ECG Rate: 86 Initial ECG Rhythm: Normal Sinus Initial ECG Intervals: Normal Initial ECG Comparisson: Unchanged Comment Insignificant Q waves lead I, aVL. No ST elevation or T wave inversion. Premature atrial complexes noted. Diagnostic Imaging Diagonstic Imaging: Xray Plain Films/CT/US/NM/MRI: chest Comments [facility] [place], [place] NAME: HORACIO BUTLER [facility] REC#: [id number] PT STATUS: REG ER : 1940 PHYSICIAN: EZEQUIEL RIDER APRN ADMIT DATE: 01/06/23/ER Signed Date of Exam:01/06/23 CHEST 1 VIEW, AP/PA ONLY INDICATION: Chest pain. TIME OF EXAM: 3:28 PM. COMPARISON: Correlation is made with prior chest from 03/13/2021. FINDINGS: Heart size is stable. There are areas of atelectasis or infiltrate in both bases. The mid and upper lung zuluaga are clear. There is no effusion or pneumothorax. IMPRESSION: Bibasilar infiltrates or atelectasis. Dictated by: Dictated on workstation # [id number] Dict: 01/06/23 1531 Trans: 01/06/23 1614 [facility] [id number] Interpreted by: WALKER MADDOX MD Electronically signed by: WALKER MADDOX MD 01/06/23 1614 Diagonstic Imaging: CT Plain Films/CT/US/NM/MRI: chest, abdomen [facility] [place] [place] NAME: HORACIO BUTLER [facility] REC#: [id number] PT STATUS: REG ER : 1940 PHYSICIAN: EZEQUIEL RIDER APRN ADMIT DATE: 01/06/23/ER Signed Date of Exam:01/06/23 CT ANGIO CHEST/ABD W PROCEDURE: CT angiography of the abdomen and chest with and without contrast. TECHNIQUE: After intravenous administration of contrast, thin section axial CT angiography of the abdomen and chest were obtained. 3D MIP reformats were provided. Auto Exposure Controls were utilized during the CT exam to meet ALARA standards for radiation dose reduction. INDICATION: Chest abdominal pain. CT ANGIOGRAM CHEST: There is some dilatation of the central pulmonary arteries, perhaps on the basis of pulmonary arterial hypertension. Pulmonary arteries are without evidence of thromboembolism. Central, lobar and segmental branches appear to be widely patent. The thoracic aorta is normal caliber. Is no dissection. Heart is enlarged. There is no pericardial fluid. There is no pleural fluid identified. There is a low-density mass in the right lobe of the thyroid measuring 2.7 cm. This is similar to prior CT dating back to 03/14/2021. Parenchymal evaluation does show some patchy airspace infiltrates in the left upper lobe consistent with pneumonia. There are some areas of infiltrate in the lingula as well. The lower lung zuluaga are clear. IMPRESSION: 1. No evidence of pulmonary embolism or acute aortic disease. There is some dilatation of the pulmonary arteries, perhaps on the basis of pulmonary arterial hypertension. 2. Patchy airspace infiltrates in the left upper lobe consistent with pneumonia. 3. Stable right lobe thyroid mass. CT ABDOMEN AND PELVIS: No focal liver mass is identified. Gallbladder is surgically absent. The pancreas and spleen are unremarkable. No adrenal mass is identified. Kidneys are unremarkable. Aorta is calcified but nonaneurysmal. Patient does have a fat-containing umbilical hernia. No definite herniated bowel loops are seen. There is extensive diverticulosis of the colon but most marked involving the descending and sigmoid colon. There is wall thickening with pericolonic inflammation involving the descending colon near the junction with the sigmoid consistent with acute diverticulitis. There is some free fluid in the pelvis but no fluid collection to suggest abscess formation. There is no free air. There are some nonspecific dilated and fluid-filled small bowel loops but no focal transition is identified. There is some fluid-filled right colon as well. Bladder is decompressed. IMPRESSION: 1. Features consistent with acute diverticulitis near the junction of the descending colon and sigmoid. No abscess formation or bowel obstruction is seen. There are some nonspecific fluid-filled small bowel loops throughout the abdomen without focal transition. Features may be owing to ileus. 2. Fat-containing umbilical hernia. Dictated by: Dictated on workstation # [id number] Dict: 01/06/23 1632 Trans: 01/06/231702 [facility] [id number] Interpreted by: WALKER MADDOX MD Electronically signed by: WALKER MADDOX MD 01/06/23 1705 Departure Communication (Admissions) Time/Spoke to Admitting Phy: 17:10 Dr. Rodriguez, hospitalist, see progress note. Time/Spoke to Consulting Phy: 17:04 Dr. Almazan, surgery, see progress note. Impression Primary Impression: Pneumonia Qualified Codes: J18.9 - Pneumonia, unspecified organism Additional Impressions: Hypoxia Diverticulitis Thyroid mass Disposition: ADMITTED INPATIENT Condition: Stable Admissions Decision to Admit Reason: Admit from ER (General) Decision to Admit/Date: Jan 06, 2023 Time/Decision to Admit Time: 17:04 Departure-Patient Inst. Referrals: ANDREAS MATA MD (PCP/Family) Primary Care Physician EZEQUIEL RIDER APRN Jan 06, 2023 15:04
[2023-01-06 15:05] LABS: CALCIUM 9.6 MG/DL (8.5-10.1)
[2023-01-06 15:07] LABS: TOTAL PROTEIN 7.6 GM/DL (6.4-8.2)
[2023-01-06 15:08] LABS: BILIRUBIN,TOTAL 0.9 MG/DL (0.1-1.0)
[2023-01-06 15:10] LABS: CREATININE SERUM 0.74 MG/DL (0.60-1.30)
[2023-01-06 15:11] LABS: PROTHROMBIN TIME PATIENT 13.2 SEC (12.2-14.7)
[2023-01-06 15:28] LABS: CLARITY,URINE CLOUDY; COLOR,URINE YELLOW; GLUCOSE, URINE (UA) NEGATIVE (NEGATIVE); KETONES,URINE 1+ (NEGATIVE); LEUKOCYTE ESTERASE ,URINE TRACE (NEGATIVE); NITRITE,URINE NEGATIVE (NEGATIVE); PROTEIN,URINE TRACE (NEGATIVE)
--- NOTE | 2023-01-06 15:34 | Diagnostic Imaging Report ---
INDICATION: Chest pain. TIME OF EXAM: 3:28 PM. COMPARISON: Correlation is made with prior chest from 03/13/2021. FINDINGS: Heart size is stable. There are areas of atelectasis or infiltrate in both bases. The mid and upper lung zuluaga are clear. There is no effusion or pneumothorax. IMPRESSION: Bibasilar infiltrates or atelectasis. Dictated by: Dictated on workstation # [id number]
[2023-01-06 15:41] LABS: BACTERIA,URINE NEGATIVE /HPF; BILIRUBIN,URINE 1+ (NEGATIVE); RBC,URINE RARE /HPF; SQUAMOUS EPITHELIAL CELL,UR 0-2 /HPF; WBC,URINE 0-2 /HPF
[2023-01-06] MEDS ORDERED: NS IV 1000 ML 1,000 ML IV SCH (15:45)
[2023-01-06 15:50] LABS: BAND NEUTROPHILS 0 %; LYMPHOCYTES % (MANUAL) 4 %; MONOCYTES % (MANUAL) 7 %; NEUTROPHILS % (MANUAL) 87 %
[2023-01-06 15:51] LABS: BASOPHILS % (MANUAL) 0 %; EOSINOPHILS % (MANUAL) 2 %; RBC MORPH NORMAL
[2023-01-06] MEDS ORDERED: IOHEXOL 350 MG/ML 100 ML (OMNIPAQUE 350) VIAL IV ONE (16:00)
[2023-01-06] MEDS ORDERED: NS 100 ML (IVPB) BAG IV ONE (16:00)
[2023-01-06] MEDS ORDERED: HOLD METFORMIN - RECEIVED CONTRAST 20 ML VIAL IV SCH (16:00)
--- NOTE | 2023-01-06 16:50 | Diagnostic Imaging Report ---
PROCEDURE: CT angiography of the abdomen and chest with and without contrast. TECHNIQUE: After intravenous administration of contrast, thin section axial CT angiography of the abdomen and chest were obtained. 3D MIP reformats were provided. Auto Exposure Controls were utilized during the CT exam to meet ALARA standards for radiation dose reduction. INDICATION: Chest abdominal pain. CT ANGIOGRAM CHEST: There is some dilatation of the central pulmonary arteries, perhaps on the basis of pulmonary arterial hypertension. Pulmonary arteries are without evidence of thromboembolism. Central, lobar and segmental branches appear to be widely patent. The thoracic aorta is normal caliber. Is no dissection. Heart is enlarged. There is no pericardial fluid. There is no pleural fluid identified. There is a low-density mass in the right lobe of the thyroid measuring 2.7 cm. This is similar to prior CT dating back to 03/14/2021. Parenchymal evaluation does show some patchy airspace infiltrates in the left upper lobe consistent with pneumonia. There are some areas of infiltrate in the lingula as well. The lower lung zuluaga are clear. IMPRESSION: 1. No evidence of pulmonary embolism or acute aortic disease. There is some dilatation of the pulmonary arteries, perhaps on the basis of pulmonary arterial hypertension. 2. Patchy airspace infiltrates in the left upper lobe consistent with pneumonia. 3. Stable right lobe thyroid mass. CT ABDOMEN AND PELVIS: No focal liver mass is identified. Gallbladder is surgically absent. The pancreas and spleen are unremarkable. No adrenal mass is identified. Kidneys are unremarkable. Aorta is calcified but nonaneurysmal. Patient does have a fat-containing umbilical hernia. No definite herniated bowel loops are seen. There is extensive diverticulosis of the colon but most marked involving the descending and sigmoid colon. There is wall thickening with pericolonic inflammation involving the descending colon near the junction with the sigmoid consistent with acute diverticulitis. There is some free fluid in the pelvis but no fluid collection to suggest abscess formation. There is no free air. There are some nonspecific dilated and fluid-filled small bowel loops but no focal transition is identified. There is some fluid-filled right colon as well. Bladder is decompressed. IMPRESSION: 1. Features consistent with acute diverticulitis near the junction of the descending colon and sigmoid. No abscess formation or bowel obstruction is seen. There are some nonspecific fluid-filled small bowel loops throughout the abdomen without focal transition. Features may be owing to ileus. 2. Fat-containing umbilical hernia. Dictated by: Dictated on workstation # [id number]
[2023-01-06] MEDS ORDERED: NS IV ONE (17:15)
[2023-01-06] MEDS ORDERED: TAZOBACTAM IV ONE (17:15)
[2023-01-06] MEDS ORDERED: PIPERACILLIN SODIUM IV ONE (17:15)
[2023-01-06] MEDS ORDERED: PIPERACILLIN SODIUM/TAZOBACTAM 3.375 GM in NS (IVPB) 100 ML IV ONE (17:30)
[2023-01-06 18:10] VITALS: BP 122/68
[2023-01-06] MEDS ORDERED: HYDROmorphone 2 MG/ML VIAL (DILAUDID) IV PRN (18:45)
[2023-01-06] MEDS ORDERED: BISACODYL 10 MG SUPP (DULCOLAX) PR PRN (18:45)
[2023-01-06] MEDS ORDERED: LACTULOSE SYRUP 10GM/15ML (ENULOSE) 30ML UDC PO PRN (18:45)
[2023-01-06] MEDS ORDERED: polyethylene glycoL POWDER 17 GM (MIRALAX) PACK PO PRN (18:45)
[2023-01-06] MEDS ORDERED: MELATONIN 3 MG TABLET PO PRN (18:45)
[2023-01-06] MEDS ORDERED: MILK OF MAGNESIA 400 MG/5 ML 30 ML UDC PO PRN (18:45)
[2023-01-06] MEDS ORDERED: diphenhydrAMINE 25 MG TAB (BENADRYL) PO PRN (18:45)
[2023-01-06] MEDS ORDERED: ONDANSETRON 4 MG/2 ML (SDV) Z0FRAN IV PRN (18:45)
[2023-01-06] MEDS ORDERED: ANTACID SUSP 30 ML UDC (MYLANTA) PO PRN (18:45)
[2023-01-06] MEDS ORDERED: ONDANSETRON 4 MG (ZOFRAN) ORAL DISSOLVE TAB PO PRN (18:45)
[2023-01-06] MEDS ORDERED: diphenhydrAMINE 50 MG/ML INJ (BENADRYL) IVP PRN (18:45)
[2023-01-06] MEDS ORDERED: ALPRAZolam 0.25 MG (XANAX) TAB PO PRN (18:45)
[2023-01-06] MEDS ORDERED: cloNIDine 0.1 MG (CATAPRES) TAB PO PRN (18:45)
[2023-01-06] MEDS ORDERED: ACETAMINOPHEN 325 MG TABLET PO PRN (18:45)
[2023-01-06] MEDS: PIPERACILLIN SODIUM/TAZOBACTAM 4.5 GM in NS (IVPB) 100 ML IV SCH (20:04)
[2023-01-06] MEDS: SENNOSIDES 8.6 MG (SENOKOT) TAB PO SCH (20:04)
[2023-01-06] MEDS: DOCUSATE SODIUM 100 MG (COLACE) CAP PO SCH (20:04)
[2023-01-06] MEDS: NS IV 1000 ML 1,000 ML IV SCH (20:04)
[2023-01-06 20:13] VITALS: BP 115/66
[2023-01-06] MEDS ORDERED: RT-ALBUTEROL/IPRATROPIUM 3 ML (DUONEB) VIAL INH PRN (21:00)
[2023-01-06] MEDS: RT-ALBUTEROL/IPRATROPIUM 3 ML (DUONEB) VIAL INH SCH (21:29)
[2023-01-07 00:23] VITALS: BP 116/73
[2023-01-07] MEDS: RT-ALBUTEROL/IPRATROPIUM 3 ML (DUONEB) VIAL INH SCH ×4 (02:20→21:01)
[2023-01-07] MEDS: NS IV 1000 ML 1,000 ML IV SCH (03:45)
[2023-01-07] MEDS: PIPERACILLIN SODIUM/TAZOBACTAM 4.5 GM in NS (IVPB) 100 ML IV SCH ×3 (03:46→20:24)
[2023-01-07 04:08] VITALS: BP 100/54
[2023-01-07 05:46] LABS: BASOPHILS # (AUTO) 0.1 10^3/uL (0.0-0.1); BASOPHILS % (AUTO) 1 % (0-10); EOSINOPHILS # (AUTO) 0.2 10^3/uL (0.0-0.3); EOSINOPHILS % (AUTO) 2 % (0-10); HEMATOCRIT 32 % (35-52); HEMOGLOBIN 10.7 g/dL (11.5-16.0); LYMPHOCYTES # (AUTO) 1.5 10^3/uL (1.0-4.0); LYMPHOCYTES % (AUTO) 18 % (12-44); MEAN CORPUSCULAR HEMOGLOBIN 30 pg (25-34); MEAN CORPUSCULAR HGB CONC 33 g/dL (32-36); MEAN CORPUSCULAR VOLUME 91 fL (80-99); MEAN PLATELET VOLUME 9.6 fL (9.0-12.2); MONOCYTES # (AUTO) 0.7 10^3/uL (0.0-1.0); MONOCYTES % (AUTO) 9 % (0-12); NEUTROPHILS # (AUTO) 5.8 10^3/uL (1.8-7.8); NEUTROPHILS % (AUTO) 70 % (42-75); PLATELET COUNT 201 10^3/uL (130-400); WHITE BLOOD COUNT 8.3 10^3/uL (4.3-11.0)
[2023-01-07 05:59] LABS: POTASSIUM 3.3 MMOL/L (3.6-5.0)
[2023-01-07 06:00] LABS: CALCIUM 8.2 MG/DL (8.5-10.1)
[2023-01-07 06:01] LABS: TOTAL PROTEIN 5.6 GM/DL (6.4-8.2)
[2023-01-07 06:03] LABS: BILIRUBIN,TOTAL 0.9 MG/DL (0.1-1.0)
[2023-01-07 06:05] LABS: CREATININE SERUM 0.71 MG/DL (0.60-1.30)
[2023-01-07] MEDS ORDERED: NS IV 1000 ML 1,000 ML IV SCH (06:32)
--- NOTE | 2023-01-07 06:32 | History & Physical-Hospitalist ---
History of Present Illness HPI/Chief Complaint CC: PNA with acute diverticulitis HPI: This is an 82yoWF clinic patient of Dr Raygoza who has a h/o multiple abd surgeries in [place] who presented to the ER with abdominal pain and hypoxia and patient was found to have acute diverticulitis and pneumonia so Dr Almazan was consulted and placed on IV abx to cover for both conditions and IVF and O2 maintained. Today she feels better. Daughter is at bedside. Will HLIVF today and ambulate. Elevated ddimer without PE on CTA and no leg pain discussed with daughter and patient. Source: patient Exam Limitations: clinical condition Date Seen 01/07/23 Time Seen by a Provider: 11:00 Attending Physician Rich Raygoza MD PCP Admitting Physician: Jenniffer Peoples DO Attending Physician: Jenniffer Peoples DO Referring Physician Date of Admission Jan 06, 2023 at 17:56 Home Medications & Allergies Home Medications Reviewed patient Home Medication Reconciliation performed by pharmacy medication reconciliations internal medicine veterinary technician and/or nursing. Patients Allergies have been reviewed. Allergies Allergies Coded Allergies No Known Drug Allergies (Unverified12/19/11) Past Hnjcgfi-Dtcvjq-Lfhpdk Hx Patient Social History Marrital Status: single Employed/Student: retired Tobacco Use?: No Smoking Status: Never a Smoker Smokeless Tobacco Frequency: Never a User Use of E-Cig and/or Vaping dev: No Use of E-Cig and/or Vaping Shane: Never a User Substance use?: No Alcohol Use?: No Pt feels they are or have been: No Immunizations Up To Date Tetanus Booster (TDap): More Than 5 Years Hepatitis A: No Hepatitis B: No Seasonal Allergies Seasonal Allergies: No Current Status Advance Directives: No Communicates: Verbally Primary Language: [place] Preferred Spoken Language: [place] Is interpretation needed?: No Sensory deficits: Vision impairment, Hearing impairment Implanted or Applied Medical D: None Past Medical History Surgeries: Abdominal, Appendectomy Hypertension OVERHEAD IRRIGATOR History: Menopausal Abdominal Hernia Blood Disorders: No Adverse Reaction/Blood Tranf: No Family Medical History Patient reports no known family medical history. Review of Systems Constitutional: see HPI, malaise, weakness Respiratory: dyspnea on exertion Gastrointestinal: abdominal pain, nausea Physical Exam Physical Exam Vital Signs Vital Signs - First Documented 01/06/23 20:51 FiO2 28 Capillary Refill : Less Than 3 Seconds Height, Weight, BMI Height: 5'2.00" Weight: 137lbs. 0.0oz. 62.806602ov; 26.56 BMI Method:Stated General Appearance: No Apparent Distress, Anxious, Chronically ill Respiratory: Lungs Clear, Normal Breath Sounds, No Accessory Muscle Use, No Respiratory Distress Cardiovascular: Regular Rate, Rhythm, No Edema, No Gallop, No JVD, No Murmur, Normal Peripheral Pulses Gastrointestinal: Normal Bowel Sounds, Tenderness Neurologic/Psychiatric: Alert, Oriented x3, No Motor/Sensory Deficits, Normal Mood/Affect, double end sewer II-XII Norm as Tested Results Results/Procedures Labs Laboratory Tests 01/06/23 15:00 01/07/23 05:34 Patient resulted labs reviewed. Assessment/Plan Admission Diagnosis Assessment: Acute diverticulitis Acute hypoxic resp failure PNA h/o abd surgeries Elevated ddimer with negative CTA chest with no leg pain Plan: Appreciate Dr Tha Carter Admission Status: Inpatient Order (span 2 midnights) Reason for Inpatient Admission: PNA and diverticulitis JENNIFFER PEOPLES DO Jan 07, 2023 06:32
[2023-01-07] MEDS: SENNOSIDES 8.6 MG (SENOKOT) TAB PO SCH ×2 (08:05→20:26)
[2023-01-07] MEDS: KCL 20 MEQ TAB (K-DUR) PO SCH ×2 (08:05→17:20)
[2023-01-07] MEDS: DOCUSATE SODIUM 100 MG (COLACE) CAP PO SCH ×2 (08:05→20:25)
[2023-01-07 08:30] VITALS: BP 119/68
--- NOTE | 2023-01-07 10:47 | CONSULTATION REPORT ---
ATTENDING ADMITTING PHYSICIAN: Rich Raygoza MD HISTORY OF PRESENT ILLNESS: The patient is an 82-year-old female who presented to the emergency department with approximately a 5-day history of pain that started around the mid abdomen, however, became more localized towards the left lower abdominal quadrant. She states that during this timeframe, she also did have several episodes of diarrhea. She does not report any red blood per rectum, nor any dark tarry stools. She also reports having similar symptoms before January of 2022. She does not report any shortness of breath, however, her oxygen saturations were in the upper 80s, requiring supplemental oxygen. CT scan of the chest and abdomen as well as a chest were consistent with bilateral atelectasis, which may indicate early pneumonia. The CT scan also detected diverticulitis of the sigmoid colon. She does not report any fever, no chills or any other systemic symptoms. Her last colonoscopy was 2 years ago which did not show any neoplastic process. PAST MEDICAL HISTORY: Hypertension. PAST SURGICAL HISTORY: Appendectomy, incisional hernia repair x2. ALLERGIES: No known drug allergies. MEDICATIONS: Metoprolol 25 mg daily. SOCIAL HISTORY: Negative smoke, negative alcohol. FAMILY HISTORY: Noncontributory. VITAL SIGNS: Temperature 36.9, blood pressure 119/68, pulse 77, respirations 18, pulse ox 93% on room air. REVIEW OF SYSTEMS: Well-nourished female, currently experiencing some mild discomfort in the left lower abdominal quadrant, which is controlled with pain medication. She does not report any shortness of breath or difficulty in breathing. No chest pain, palpitations, diaphoresis. No nausea, vomiting; however, has not had much of an appetite in the past several days, loose stools, no red blood per rectum, no dark tarry stools. No fever, chills, no recent inadvertent weight loss. All other review of systems negative. PHYSICAL EXAMINATION: CHEST: Decreased bilateral breath sounds at the bases. HEART: Regular. No murmurs. EXTREMITIES: No lower extremity edema. Negative Homans sign. HEENT: No scleral icterus. No cervical lymphadenopathy. ABDOMEN: Soft, nondistended. There is pain in the left lower abdominal quadrant upon palpation with voluntary guarding, no rebound. There is a periumbilical incisional hernia identified, which is reducible. SKIN: Warm, dry. LABORATORY DATA: WBC 8.3, hemoglobin 10.7, hematocrit 32, platelets 201, BUN 11, creatinine 0.71. ASSESSMENT AND PLAN: An 82-year-old female with a noncomplicated acute sigmoid diverticulitis. We will recommend conservative management with bowel rest and IV antibiotics. Once she has adequate pain control and continues to have bowel function, we will advance her diet. She also needs to follow a low residue diet for the next 6 weeks. However, long-term, she will need to proceed with a high-fiber diet with a fiber supplement to promote soft consistency stools on a daily basis. Job ID: [id number] DocumentID: [id number] Dictated Date: 01/07/2023 09:43:58 Dynamometer Tester Engine Date: 01/07/2023 10:45:00 Dictated By: BLAYNE FARRAR MD MTDD
[2023-01-07 12:00] VITALS: BP 123/70
[2023-01-07] MEDS ORDERED: ENOXAPARIN 40 MG/0.4 ML (LOVENOX) SYR SC SCH (12:00)
[2023-01-07] MEDS ORDERED: KCL 20 MEQ TAB (K-DUR) PO SCH (12:00)
[2023-01-07 16:10] VITALS: BP 104/61
[2023-01-07 19:50] VITALS: BP 147/74
[2023-01-07] MEDS: ENOXAPARIN 80 MG/0.8 ML (LOVENOX) SYR SC SCH (21:45)
[2023-01-08] VITALS (7 sets, daily range): BP systolic 116–143; BP diastolic 67–79
[2023-01-08] MEDS: CALCIUM CARBONATE 500 MG (TUMS) TAB.CHEW PO PRN ×2 (01:54→22:49)
[2023-01-08] MEDS: RT-ALBUTEROL/IPRATROPIUM 3 ML (DUONEB) VIAL INH SCH ×4 (03:26→21:34)
[2023-01-08] MEDS: PIPERACILLIN SODIUM/TAZOBACTAM 4.5 GM in NS (IVPB) 100 ML IV SCH ×3 (03:28→21:39)
[2023-01-08 05:50] LABS: BASOPHILS # (AUTO) 0.1 10^3/uL (0.0-0.1); BASOPHILS % (AUTO) 1 % (0-10); EOSINOPHILS # (AUTO) 0.2 10^3/uL (0.0-0.3); EOSINOPHILS % (AUTO) 4 % (0-10); HEMATOCRIT 34 % (35-52); HEMOGLOBIN 11.1 g/dL (11.5-16.0); LYMPHOCYTES % (AUTO) 15 % (12-44); MEAN CORPUSCULAR HEMOGLOBIN 30 pg (25-34); MEAN CORPUSCULAR HGB CONC 33 g/dL (32-36); MEAN CORPUSCULAR VOLUME 91 fL (80-99); MEAN PLATELET VOLUME 9.6 fL (9.0-12.2); MONOCYTES # (AUTO) 0.5 10^3/uL (0.0-1.0); MONOCYTES % (AUTO) 8 % (0-12); NEUTROPHILS # (AUTO) 4.8 10^3/uL (1.8-7.8); NEUTROPHILS % (AUTO) 73 % (42-75); PLATELET COUNT 212 10^3/uL (130-400); WHITE BLOOD COUNT 6.6 10^3/uL (4.3-11.0)
[2023-01-08 06:06] LABS: ALBUMIN 3.3 GM/DL (3.2-4.5); BILIRUBIN,TOTAL 0.6 MG/DL (0.1-1.0); CALCIUM 8.1 MG/DL (8.5-10.1); CREATININE SERUM 0.7 MG/DL (0.60-1.30); POTASSIUM 3.4 MMOL/L (3.6-5.0); TOTAL PROTEIN 6.3 GM/DL (6.4-8.2)
[2023-01-08] MEDS: SENNOSIDES 8.6 MG (SENOKOT) TAB PO SCH ×2 (08:09→21:39)
[2023-01-08] MEDS: DOCUSATE SODIUM 100 MG (COLACE) CAP PO SCH ×2 (08:09→21:39)
[2023-01-08] MEDS: ENOXAPARIN 80 MG/0.8 ML (LOVENOX) SYR SC SCH ×2 (08:10→21:39)
[2023-01-08] MEDS: KCL 20 MEQ TAB (K-DUR) PO SCH ×2 (08:10→17:23)
[2023-01-08] MEDS ORDERED: AMLO-250 PO (09:47)
--- NOTE | 2023-01-08 11:01 | Diagnostic Imaging Report ---
PROCEDURE: US Venous Lower Ext Jose Antonio. TECHNIQUE: Multiple real-time grayscale images were obtained over the lower extremities in various projections, bilaterally. Additional duplex Doppler and color Doppler images were also obtained. INDICATION: Elevated D-dimer. FINDINGS: There is no evidence of right or left lower extremity DVT. Both lower extremity deep venous systems demonstrate normal compressibility with normal response to augmentation and Valsalva. No fluid collection or mass is detected. IMPRESSION: No evidence of right or left lower extremity DVT. Dictated by: Dictated on workstation # [id number]
--- NOTE | 2023-01-08 16:10 | Progress Note ---
Subjective Date Seen by a Provider: Jan 08, 2023 Time Seen by a Provider: 16:00 Subjective/Events-last exam doing better today. less abd pain. tolerating clears and feels hungry. no fever/chills. Focused Exam Lactate Level 01/06/23 15:49: Lactic Acid Level 0.95 Objective Exam Vital Signs Date Time Temp Pulse Resp B/P (MAP) Pulse Ox O2 Delivery O2 Flow Rate FiO2 01/08/23 15:46 36.2 58 18 138/70 (92) 94 Nasal Cannula 2.00 01/08/23 15:41 98 Nasal Cannula 2.00 01/08/23 15:36 87 Room Air 0.00 01/08/23 13:24 74 01/08/23 12:02 36.8 61 18 143/72 (95) 92 Room Air 01/08/23 09:14 96 Room Air 0.00 01/08/23 09:09 95 Nasal Cannula 2.00 01/08/23 08:35 36.9 54 18 116/68 (84) 92 Nasal Cannula 2.00 01/08/23 08:00 Nasal Cannula 2.00 01/08/23 07:12 63 01/08/23 04:18 37.1 66 16 136/67 (90) 92 Nasal Cannula 2.00 01/08/23 01:00 65 01/08/23 00:52 36.3 70 16 137/79 (98) 90 Room Air 01/07/23 21:01 96 Room Air 01/07/23 20:25 Room Air 01/07/23 19:50 37.5 74 18 147/74 (98) 92 Room Air 01/07/23 19:00 74 01/07/23 16:10 37.3 72 18 104/61 (75) 96 Nasal Cannula 2.00 I & O 01/08/23 07:00 Intake Total 2370 ml Balance 2370 ml Capillary Refill : Less Than 3 Seconds General Appearance: No Apparent Distress HEENT: PERRL/EOMI Neck: Full Range of Motion Respiratory: Chest Non Tender, Decreased Breath Sounds Cardiovascular: Regular Rate, Rhythm Gastrointestinal: normal bowel sounds, tenderness Extremity: Normal Capillary Refill Neurologic/Psychiatric: Alert, Oriented x3 Skin: Normal Color Lymphatic: No Adenopathy Results Lab Laboratory Tests 01/08/23 05:34: White Blood Count 6.6, Red Blood Count 3.72L, Hemoglobin 11.1L, Hematocrit 34L, Mean Corpuscular Volume 91, Mean Corpuscular Hemoglobin 30, Mean Corpuscular Hemoglobin Concent 33, Red Cell Distribution Width 14.0, Platelet Count 212, Mean Platelet Volume 9.6, Immature Granulocyte % (Auto) 0, Neutrophils (%) (Auto) 73, Lymphocytes (%) (Auto) 15, Monocytes (%) (Auto) 8, Eosinophils (%) (Auto) 4, Basophils (%) (Auto) 1, Neutrophils # (Auto) 4.8, Lymphocytes # (Auto) 1.0, Monocytes # (Auto) 0.5, Eosinophils # (Auto) 0.2, Basophils # (Auto) 0.1, Immature Granulocyte # (Auto) 0.0, Sodium Level 141, Potassium Level 3.4L, Chloride Level 109H, Carbon Dioxide Level 22, Anion Gap 10, Blood Urea Nitrogen 6L, Creatinine 0.70, Estimat Glomerular Filtration Rate 85, BUN/Creatinine Ratio 9, Glucose Level 98, Calcium Level 8.1L, Corrected Calcium 8.7, Total Bilirubin 0.6, Aspartate Amino Transf (AST/SGOT) 16, Alanine Aminotransferase (ALT/SGPT) 13, Alkaline Phosphatase 40, Total Protein 6.3L, Albumin 3.3 Microbiology 01/06/23 Blood Culture - Preliminary, Resulted No growth Assessment/Plan Assessment/Plan Assess & Plan/Chief Complaint sigmoid diverticulitis. advance to low residue diet. cont abx. has had recent colonoscopy and will not require f/u colo. Clinical Quality Measures DVT/VTE Risk/Contraindication: Contraindications-Mechi: Other *list below* Other: obtain usg first on legs BLAYNE FARRAR MD Jan 08, 2023 16:10
[2023-01-08] MEDS ORDERED: CALCIUM CARBONATE 500 MG (TUMS) TAB.CHEW PO PRN (21:30)
--- NOTE | 2023-01-08 21:38 | Progress Note ---
Subjective Date Seen by a Provider: Jan 08, 2023 Time Seen by a Provider: 07:10 Subjective/Events-last exam patient was admitted over the weekend for pneumonia as well as diverticulitis. She has been on Zosyn antibiotic and tolerating well. She overall is feeling better and appetite is starting to return a little bit better. Her daughter is with her today and has questions as well. Focused Exam Lactate Level 01/06/23 15:49: Lactic Acid Level 0.95 Objective Exam Vital Signs Date Time Temp Pulse Resp B/P (MAP) Pulse Ox O2 Delivery O2 Flow Rate FiO2 01/08/23 20:00 36.4 76 16 130/77 (94) 90 Room Air 01/08/23 19:00 89 01/08/23 15:46 36.2 58 18 138/70 (92) 94 Nasal Cannula 2.00 01/08/23 15:41 98 Nasal Cannula 2.00 01/08/23 15:36 87 Room Air 0.00 01/08/23 13:24 74 01/08/23 12:02 36.8 61 18 143/72 (95) 92 Room Air 01/08/23 09:14 96 Room Air 0.00 01/08/23 09:09 95 Nasal Cannula 2.00 01/08/23 08:35 36.9 54 18 116/68 (84) 92 Nasal Cannula 2.00 01/08/23 08:00 Nasal Cannula 2.00 01/08/23 07:12 63 01/08/23 04:18 37.1 66 16 136/67 (90) 92 Nasal Cannula 2.00 01/08/23 01:00 65 01/08/23 00:52 36.3 70 16 137/79 (98) 90 Room Air I & O 01/08/23 06:59 Intake Total 2370 ml Balance 2370 ml Capillary Refill : Less Than 3 Seconds General Appearance: No Apparent Distress Respiratory: Normal Breath Sounds (In the lung bases but otherwise clear) Cardiovascular: Regular Rate, Rhythm Gastrointestinal: soft; No guarding, No rebound; other (Bowel sounds are noted) Results Lab Laboratory Tests 01/08/23 05:34: White Blood Count 6.6, Red Blood Count 3.72L, Hemoglobin 11.1L, Hematocrit 34L, Mean Corpuscular Volume 91, Mean Corpuscular Hemoglobin 30, Mean Corpuscular Hemoglobin Concent 33, Red Cell Distribution Width 14.0, Platelet Count 212, Mean Platelet Volume 9.6, Immature Granulocyte % (Auto) 0, Neutrophils (%) (Auto) 73, Lymphocytes (%) (Auto) 15, Monocytes (%) (Auto) 8, Eosinophils (%) (Auto) 4, Basophils (%) (Auto) 1, Neutrophils # (Auto) 4.8, Lymphocytes # (Auto) 1.0, Monocytes # (Auto) 0.5, Eosinophils # (Auto) 0.2, Basophils # (Auto) 0.1, Immature Granulocyte # (Auto) 0.0, Sodium Level 141, Potassium Level 3.4L, Chloride Level 109H, Carbon Dioxide Level 22, Anion Gap 10, Blood Urea Nitrogen 6L, Creatinine 0.70, Estimat Glomerular Filtration Rate 85, BUN/Creatinine Ratio 9, Glucose Level 98, Calcium Level 8.1L, Corrected Calcium 8.7, Total Bilirubin 0.6, Aspartate Amino Transf (AST/SGOT) 16, Alanine Aminotransferase (ALT/SGPT) 13, Alkaline Phosphatase 40, Total Protein 6.3L, Albumin 3.3 Microbiology 01/06/23 Blood Culture - Preliminary, Resulted No growth Assessment/Plan Assessment/Plan Assess & Plan/Chief Complaint 1. Acute diverticulitis -surgical consultation. Patient currently on low residue diet. She appears to be improving. Her appetite is improving 2. Pneumonia -Currently on Zosyn and tolerating well 3. Hypoxia secondary to #2 -Improved and not on nasal cannula oxygen 4. Elevated d-dimer on admission but negative CTA chest Clinical Quality Measures DVT/VTE Risk/Contraindication: Contraindications-Mechi: Other *list below* Other: obtain usg first on legs ANDREAS MATA MD Jan 08, 2023 21:38
[2023-01-09] MEDS: RT-ALBUTEROL/IPRATROPIUM 3 ML (DUONEB) VIAL INH SCH ×2 (02:43→08:20)
[2023-01-09 03:41] VITALS: BP 132/67
[2023-01-09] MEDS: PIPERACILLIN SODIUM/TAZOBACTAM 4.5 GM in NS (IVPB) 100 ML IV SCH ×2 (03:48→12:23)
[2023-01-09 05:45] LABS: BASOPHILS # (AUTO) 0.1 10^3/uL (0.0-0.1); BASOPHILS % (AUTO) 1 % (0-10); EOSINOPHILS # (AUTO) 0.3 10^3/uL (0.0-0.3); EOSINOPHILS % (AUTO) 6 % (0-10); HEMATOCRIT 33 % (35-52); HEMOGLOBIN 10.9 g/dL (11.5-16.0); LYMPHOCYTES # (AUTO) 1.4 10^3/uL (1.0-4.0); LYMPHOCYTES % (AUTO) 25 % (12-44); MEAN CORPUSCULAR HEMOGLOBIN 30 pg (25-34); MEAN CORPUSCULAR HGB CONC 33 g/dL (32-36); MEAN CORPUSCULAR VOLUME 92 fL (80-99); MEAN PLATELET VOLUME 9.3 fL (9.0-12.2); MONOCYTES # (AUTO) 0.5 10^3/uL (0.0-1.0); MONOCYTES % (AUTO) 9 % (0-12); NEUTROPHILS # (AUTO) 3.4 10^3/uL (1.8-7.8); NEUTROPHILS % (AUTO) 59 % (42-75); PLATELET COUNT 207 10^3/uL (130-400); WHITE BLOOD COUNT 5.7 10^3/uL (4.3-11.0)
[2023-01-09 05:51] LABS: ALBUMIN 3.2 GM/DL (3.2-4.5)
[2023-01-09 05:52] LABS: POTASSIUM 3.2 MMOL/L (3.6-5.0)
[2023-01-09 05:53] LABS: CALCIUM 8.8 MG/DL (8.5-10.1)
[2023-01-09 05:54] LABS: TOTAL PROTEIN 5.9 GM/DL (6.4-8.2)
[2023-01-09 05:56] LABS: BILIRUBIN,TOTAL 0.4 MG/DL (0.1-1.0)
[2023-01-09 05:58] LABS: CREATININE SERUM 0.68 MG/DL (0.60-1.30)
[2023-01-09 07:09] VITALS: BP 131/73
[2023-01-09] MEDS ORDERED: KCL 10 MEQ TAB (MICRO K) PO NR (08:00)
[2023-01-09] MEDS: SENNOSIDES 8.6 MG (SENOKOT) TAB PO SCH (08:03)
[2023-01-09] MEDS: KCL 20 MEQ TAB (K-DUR) PO SCH (08:03)
[2023-01-09] MEDS: DOCUSATE SODIUM 100 MG (COLACE) CAP PO SCH (08:03)
[2023-01-09] MEDS: ENOXAPARIN 80 MG/0.8 ML (LOVENOX) SYR SC SCH (08:07)
[2023-01-09] MEDS ORDERED: PANTOPRAZOLE 40 MG (PROTONIX) VIAL IV SCH (09:00)
[2023-01-09 11:17] VITALS: BP 117/77
[2023-01-09] MEDS ORDERED: ACHD5005 PO (11:55)
--- NOTE | 2023-01-09 11:59 | Discharge Inst-Surgical ---
D/C Lap Instructions-KIDO New, Converted, or Re-Newed RX: RX on Chart Follow Up Appt in 2 weeks Activity as tolerated No driving for 24 hours No driving while on pain medications low residue diet next 6 weeks. Avoid Alcohol, Caffeine, Spicy [place] and Acid foods. Drink 64 fluid oz or more of fluids per day. Symptoms to Report: Fever over 101 degree F, Nausea/Vomiting If any problems/questions: Contact your physician or go to Emergency Room BLAYNE FARRAR MD Jan 09, 2023 11:58
[2023-01-09] MEDS ORDERED: METR-145 PO (12:00)
[2023-01-09] MEDS ORDERED: CIPR-225 PO (12:00)
--- NOTE | 2023-01-09 12:59 | Discharge Summary ---
Diagnosis/Chief Complaint Date of Admission Jan 06, 2023 at 17:56 Date of Discharge Admission Diagnosis Admission Diagnosis 1. Acute diverticulitis 2. Acute hypoxic respiratory failure 3. pneumonia 4. History of abdominal surgeries 5. Elevated d-dimer with negative CTA chest Discharge Diagnosis 1. Acute diverticulitis 2. Hypoxemia secondary to pneumonia 3. Pneumonia 4. Elevated d-dimer without evidence for pulmonary embolism Chief Complaint/HPI Chief Complaint/HPI This is an 82yoWF who has a h/o multiple abd surgeries in [place] who presented to the ER with abdominal pain and hypoxia and patient was found to have acute diverticulitis and pneumonia so Dr Almazan was consulted and placed on IV abx to cover for both conditions and IVF and O2 maintained. Today she feels better. Daughter is at bedside. Will HLIVF today and ambulate. Elevated ddimer without PE on CTA and no leg pain discussed with daughter and patient. Discharge Summary-Simple/Stand Consultations surgery Dr. Almazan Discharge Physical Examination Allergies: Coded Allergies: No Known Drug Allergies (Unverified , 12/19/11) Vitals & I&Os Vital Sign - Last 12Hours Date Time Temp Pulse Resp B/P (MAP) Pulse Ox O2 Delivery O2 Flow Rate FiO2 01/09/23 11:17 36.6 79 18 117/77 (90) 96 Nasal Cannula 2.00 01/06/23 20:51 28 Intake and Output 01/09/23 00:00 Intake Total 1120 ml Balance 1120 ml General Appearance: Alert, Oriented X3 Respiratory: Clear to Auscultation Cardiovascular: Regular Rate Abdominal: Soft, No Tenderness, No Masses Neuro: Normal Gait, Normal Speech Hospital Course Was the Problem List Reviewed?: Yes See final discharge diagnosis. patient was admitted initially on January 07 with hypoxemia. She was also found to have non-complicated acute sigmoid diverticulitis. She was placed on bowel rest and received antibiotics through IV initially. Surgery had been consulted as well. With her findings of by basilar infiltrates on chest x-ray and left upper lobe infiltrate on CTA she was started on Zosyn. She was provided nasal cannula oxygen which was eventually tapered during the course of her hospital st ay. She was also advanced to a low residue diet during the course of her stay and improved. She was felt ready for dismissal to home on January 09, 2023 Discharge Instructions to patient/family Please see electronic discharge instructions given to patient. Discharge Medications Reviewed and agree with Discharge Medication list on patient's Discharge Instruction sheet Clinical Quality Measures DVT/VTE Risk/Contraindication: Contraindications-Mechi: Other *list below* Other: obtain usg first on legs ANDREAS MATA MD Jan 09, 2023 12:59
[2023-01-09 15:14] VITALS: BP 117/77
[2023-01-09 16:09] VITALS: BP 145/75
[2023-01-09 16:19] VITALS: BP 145/75
--- NOTE | 2023-01-09 19:15 | Physician Query Clarification ---
Physician Query-General Query to Physician: The medical record reflects the following clinical scenario: History/Risk factors: Pneumonia, advanced age, no documentation of Home 02 use Clinical Findings: On admission SpO2 88% sat on 2 L (P/F=196) Drops to 87% when weaned to RA, RR 16 on admission has been as high as 22, Has been on 2 L O2 since intermittently since admission, more on than off, Treatment: Supplemental 02, respiratory monitoring, Zosyn IV Question: Is Acute Hypoxic Respiratory Failure a clinically valid diagnosis? Acute Hypoxic Respiratory Failure was documented in the H and P with no further documentation of Acute Hypoxic Respiratory Failure In the medical record. If yes, please document in the Progress Notes and Discharge Summary. Yes, Acute Hypoxic Respiratory Failure is clinically valid, condition resolved No, Acute Hypoxic Respiratory Failure Ruled out Other, with explanation of clinical findings Undetermined, no explanation for clinical findings In responding to this query, please exercise your independent professional judgment. The purpose of this communication is to more accurately reflect the complexity of your patients condition. The fact that a question is asked does not imply that any particular answer is desired or expected. Thank you for your timely response to this clarification. Joelle Mclaughlin MSN, RN [employer] Lecturer [email or web address] PHYSICIAN RESPONSE: Based on the clinical findings in the record, please respond to the query above on this document as an addendum. Physician Response: Physician Response during her hospital stay it became evident that her hypoxemia was secondary to pneumonia. She was found to have infiltrates by both chest x-ray and CT angio. final diagnosis will be hypoxemia secondary to pneumonia If you have questions please contact: Car Shagger: Ext: Thank you for your time and cooperation. [employer] Lecturer/Car Shagger This is a permanent part of the medical record JOELLE MCLAUGHLIN Jan 09, 2023 19:15 ANDREAS MATA MD January 31, 2023 07:34
[2023-01-09] MEDS ORDERED: RT-ALBUTEROL/IPRATROPIUM 3 ML (DUONEB) VIAL INH SCH (21:00)
--- NOTE | 2023-01-29 04:29 | Physician Query Clarification ---
PQ-Uncertain Diagnosis Admission/Discharge Admission Date: Jan 06, 2023 at 17:56 Discharge Date: Jan 09, 2023 at 16:00 The medical record reflects the following clinical scenario: History/Risk Factors: 82 y/o female patient admitted with pneumonia and sigmoid diverticulitis, acute hypoxic resoiratory failure was documented in medical record. Clinical Findings: On admission SpO2 88% sat on 2 L (P/F=196) Drops to 87% when weaned to RA, RR 16 on admission has been as high as 22, Has been on 2 L O2 since intermittently since admission, more on than off. . Treatment: Supplemental 02, respiratory monitoring, Zosyn IV. Question: Is acute hypoxic respiratory failure a clinically valid diagnosis? Acute hypoxic respiratory failure was documented in the Hand P, 01/06 with no further documentation in the medical record. Please document a response in Progress Note or Discharge Summary. 1. Yes, clinically valid, condition resolved. 2. No, condition ruled out. 3. Other, with explanation of clinical findings. 4. Undetermined, no explanation for clinical findings. PHYSICIAN RESPONSE Diagnosis clinically valid: Other, explanation/clinical finding Explanation of clincal finding her hypoxemia improved with nasal cannula oxygen and IV antibiotics. Final diagnosis will be hypoxemia secondary to pneumonia In responding to this query, please exercise your independent professional j udgment. The purpose of this communication is to more accurately reflect the complexity of your patients condition. The fact that a question is asked does not imply that any particular answer is desired or expected. Thank you for your timely response to this clarification. Requestors name: [ ] Phone # [ ] THIS PHYSICIAN QUERY FORM IS A PERMANENT PART OF THE MEDICAL RECORD JA LIU January 29, 2023 04:29 ANDREAS MATA MD January 31, 2023 07:35
== END 2023-01-09 16:00 | disposition home or self-care (01) | DRG 391 ==
LOC: EDUNIT# 14:29 → ER 14:32 → 4TH 17:56
PROVIDERS: ADMIT Internal Medicine; ATTEND Family Medicine
DX: K57.32 Diverticulitis of large intestine without perforation or abscess without bleeding (principal); J18.9 Pneumonia, unspecified organism; R09.02 Hypoxemia; I10 Essential (primary) hypertension; K42.9 Umbilical hernia without obstruction or gangrene; E07.9 Disorder of thyroid, unspecified; H54.7 Unspecified visual loss; H91.90 Unspecified hearing loss, unspecified ear
CPT/HCPCS: 36415; 71045; 71275; 74175; 80053; 81000; 82150; 83605; 83690; 83735; 83880; 84484; 85007; 85025; 85027; 85379; 85610; 85730; 87040; 93005; 93970; 94640; 94664; 94760; 96361; 96365